=== PATIENT | male | born 1965 | race Caucasian/White ===

== ENCOUNTER 2016-07-19 21:22 | Emergency (ER) | payer OTHER ==
[~2016-07-19] VITALS: Ht 167.6 cm; Wt 79.5 kg
[~2016-07-19 21:22] MED LIST: ASPI81TA11 PO; ENAL10TA7 PO; FENO145T2 PO; GLUC1000 PO; GLYB1TAB51 PO; SIMV20 PO; TEST1INJ3 IM
[2016-07-19 21:25] VITALS: BP 133/83; PULSE 80; RESP 18; TEMP 98.6; O2SAT 96
[2016-07-19] MEDS ORDERED: LIPI80TA PO (22:45)
[2016-07-19] MEDS ORDERED: MULT1TAB84 PO (22:45)
[2016-07-19] MEDS ORDERED: HYDR-3533 PO (23:09)
[2016-07-19] MEDS ORDERED: ACETAMINOPHEN/HYDROcodone 325 MG/5 MG TAB PO ONE (23:15)
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
--- NOTE | 2016-07-19 23:57 | RADRPT ---
EXAM DATE/TIME: 07/19/2016 23:17 [facility] COMPARISON: No previous studies available for comparison. INDICATIONS : Right knee pain, no trauma. MEDICAL HISTORY : Hypertension. Diabetes mellitus type II. SURGICAL HISTORY : None. ENCOUNTER: Initial ACUITY: 1 day PAIN SCORE: 5/10 LOCATION: Right lateral knee. FINDINGS: There is no evidence of acute fracture. Bony mineralization is normal. Joint spaces are maintained. T here is no evidence of joint effusion. Accessory ossicle is present. CONCLUSION: 1. Negative examination of the knee. Jitendra Jung MD on July 19, 2016 at 23:52 Board Certified Radiologist. This report was verified electronically.
== END 2016-07-20 00:08 | disposition home or self-care (01) ==
LOC: NEPB 21:22
DX: S83.91XA Sprain of unspecified site of right knee, initial encounter (principal); X50.0XXA Overexertion from strenuous movement or load, initial encounter; Y92.003 Bedroom of unspecified non-institutional (private) residence as the place of occurrence of the external cause; E78.00 Pure hypercholesterolemia, unspecified; E11.9 Type 2 diabetes mellitus without complications; K21.9 Gastro-esophageal reflux disease without esophagitis; I10 Essential (primary) hypertension
CPT/HCPCS: 73560; 99283; L1830

== ENCOUNTER 2017-03-22 04:23 | Inpatient (IN) | payer OTHER ==
[~2017-03-22] VITALS: Ht 170.2 cm; Wt 75.7 kg
[~2017-03-22 04:23] MED LIST changes: -ASPI81TA11 PO; -ENAL10TA7 PO; -FENO145T2 PO; -GLUC1000 PO; -GLYB1TAB51 PO; +HYDR-3533 PO; +LIPI80TA PO; +MULT1TAB84 PO; -SIMV20 PO; -TEST1INJ3 IM
[2017-03-22 04:25] VITALS: BP 168/90; PULSE 99; RESP 16; TEMP 98.5; O2SAT 99
[2017-03-22] MEDS ORDERED: SODIUM CHLOR 0.9% 1000 ML INJ 1,000 ML IV ONE (04:45)
[2017-03-22] MEDS ORDERED: HYDROmorphone HCL PF 1 MG/ML VIAL IV PUSH ONE (04:45)
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
[2017-03-22 05:09] LABS: AUTOMATED NEUTROPHIL # 8.8 TH/MM3 (1.8-7.7); BASOPHIL % 0.1 % (0.0-2.0); EOSINOPHIL # 0.1 TH/MM3 (0-0.4); HEMATOCRIT 43.2 % (39.0-51.0); HEMO FLAGS DIFF FINAL; LYMPH % 8.1 % (9.0-44.0); LYMPHOCYTE # 0.8 TH/MM3 (1.0-4.8); MEAN CELL VOLUME 87.2 FL (80.0-100.0); MEAN CORPUSCULAR HEMOGLOBIN 29.3 PG (27.0-34.0); MEAN CORPUSCULAR HGB CONC 33.6 % (32.0-36.0); MONO % 1.6 % (0.0-8.0); NEUT % 89.2 % (16.0-70.0); PLATELET COUNT 182 TH/MM3 (150-450); RED BLOOD COUNT 4.95 MIL/MM3 (4.50-5.90); RED CELL DISTRIBUTION WIDTH 13.4 % (11.6-17.2); WHITE BLOOD COUNT 9.9 TH/MM3 (4.0-11.0)
[2017-03-22 05:26] LABS: ALT (GPT) 212 U/L (12-78); ANION GAP 7 MEQ/L (5-15); AST (GOT) 267 U/L (15-37); BICARBONATE 30.7 MEQ/L (21.0-32.0); BLOOD UREA NITROGEN 12 MG/DL (7-18); CHLORIDE 102 MEQ/L (98-107); POTASSIUM 3.6 MEQ/L (3.5-5.1); SODIUM (NA) 140 MEQ/L (136-145)
[2017-03-22 05:29] LABS: ALKALINE PHOSPHATASE 200 U/L (45-117); TOTAL BILIRUBIN ADULT 1.1 MG/DL (0.2-1.0)
[2017-03-22] MEDS ORDERED: IOHEXOL 350 MG/ML 10 ML VIAL (for RAD DIAG) IVCONTRAST ONE (05:44)
--- NOTE | 2017-03-22 06:01 | RADRPT ---
EXAM DATE/TIME: 03/22/2017 05:42 [facility] COMPARISON: No previous studies available for comparison. INDICATIONS : Right upper quadrant pain. IV CONTRAST: 95 cc Omnipaque 350 (iohexol) IV ORAL CONTRAST: No oral contrast ingested. RADIATION DOSE: 7.69 CTDIvol (mGy) MEDICAL HISTORY : Cardiovascular disease. Gastroesophageal reflux disease. Hypertension.Diabetes. SURGICAL HISTORY : Gastric bypass. ENCOUNTER: Initial ACUITY: 1 day PAIN SCALE: 6/10 LOCATION: Right upper quadrant TECHNIQUE: Volumetric scanning of the abdomen and pelvis was performed. Using automated exposure control and ad justment of the mA and/or kV according to patient size, radiation dose was kept as low as reasonably achievable to obtain optimal diagnostic quality images. DICOM format image data is available electro nically for review and comparison. FINDINGS: LOWER LUNGS: The visualized lower lungs are clear. LIVER: Homogeneous density without lesion. Mild intrahepatic with significant extrahepatic biliary duct dila tation. CBD measures 1.1 cm in diameter. Gallbladder distention with probable pericholecystic fluid. Abnormal density in the distal duct is concerning for a stone measuring upwards of 8 mm in diameter. SPLEEN: Normal size without lesion. PANCREAS: Within normal limits. KIDNEYS: Normal in size and shape. There is no mass, stone or hydronephrosis. ADRENAL GLANDS: Within normal limits. VASCULAR: There is no aortic aneurysm. BOWEL/MESENTERY: The stomach, small bowel, and colon demonstrate no acute abnormality. There is no free intraperitone al air or fluid. The appendix is identified and is radiographically normal. ABDOMINAL WALL: Within normal limits. RETROPERITONEUM: There is no lymphadenopathy. BLADDER: No wall thickening or mass. REPRODUCTIVE: Within normal limits. INGUINAL: There is no lymphadenopathy or hernia. MUSCULOSKELETAL: Within normal limits for patient age. CONCLUSION: 1. I believe patient's symptoms are due to a biliary ductal stone measuring 8 mm in diameter with res ulting intrahepatic and extrahepatic biliary ductal dilatation, gallbladder distention and mild peric holecystic fluid. 2. Otherwise negative. The vermiform appendix is identified and is radiographically normal. The appen diceal tip is juxtaposed between the right hepatic lobe and ascending colon. Luis Olvera MD on March 22, 2017 at 5:56 Board Certified Radiologist. This report was verified electronically.
[2017-03-22] MEDS ORDERED: PIPERACIL-TAZO 3.375 GM PREMIX 50 ML IV ONE (06:15)
[2017-03-22] MEDS ORDERED: TEMAZEPAM 15 MG CAP PO PRN (06:45)
[2017-03-22] MEDS ORDERED: ONDANSETRON HCL 4 MG/2 ML VIAL IVP PRN (06:45)
[2017-03-22] MEDS ORDERED: SODIUM CHLORIDE 0.9% FLUSH 10 ML FLUSH IV FLUSH PRN (06:45)
[2017-03-22] MEDS ORDERED: NALOXONE HCL 0.4 MG/ML AMP IV PUSH PRN (06:45)
[2017-03-22] MEDS ORDERED: MAGNESIUM HYDROXIDE SUSP 30 ML CUP PO PRN (06:45)
[2017-03-22] MEDS ORDERED: ACETAMINOPHEN 325 MG TAB PO PRN (06:45)
--- NOTE | 2017-03-22 06:48 | RADRPT ---
EXAM DATE/TIME: 03/22/2017 06:35 [facility] COMPARISON: No previous studies available for comparison. INDICATIONS : Chest pain and cough MEDICAL HISTORY : Cardiovascular disease. Gastroesophageal reflux disease. Hypertension.Diabetes. SURGICAL HISTORY : Gastric bypass ENCOUNTER: Initial ACUITY: 1 day PAIN SCORE: 6/10 LOCATION: Bilateral chest FINDINGS: A single view of the chest demonstrates the lungs to be symmetrically, but under aerated without evid ence of mass, infiltrate or effusion. The cardiomediastinal contours are unremarkable. Osseous stru ctures are intact. CONCLUSION: Hypoinflation with no acute cardiac pulmonary process. Luis Olvera MD on March 22, 2017 at 6:46 Board Certified Radiologist. This report was verified electronically.
[2017-03-22] MEDS: 1/2 NS + KCL 20 MEQ INJ 1,000 ML IV SCH ×3 (07:57→19:00)
[2017-03-22 08:32] VITALS: BP 99/62; PULSE 98; RESP 18; O2SAT 99
[2017-03-22] MEDS: SODIUM CHLORIDE 0.9% FLUSH 10 ML FLUSH IV FLUSH SCH (09:00)
[2017-03-22 09:52] VITALS: BP 95/66; PULSE 107; RESP 18; TEMP 99.4; O2SAT 95
--- NOTE | 2017-03-22 10:37 | HHI.HP ---
HPI Service CP Hospitalists Primary Care Physician Non-Staff Admission Diagnosis biliary pancreatitis Chief Complaint: Abdominal pain Travel History International Travel<30 Days: No Contact w/Intl Traveler <30 Da: No Traveled to Known Affected Are: No History of Present Illness This is a 51 year old male patient with a past medical history which includes high cholesterol, R carotid stenosis, DM, GERD and HTN. Patient has gastic bypass 2014 and in no longer on medication for DM, GERD or HTN. Patient reports he has had three episodes of RUQ abdominal pain described as feeling as though his abdominal muscles are tightened and wount relax. The initial episode was about two months ago then second episode was about one month ago both of these episodes resolved spontaneously. Last night night pain had a third episode of RUQ abdominal pain that did not resolve therefore he proceeded to the ER. Pain resolved after IV dilaudid. Patient reports associated dry heaves and nausea. Patient is unsure what causes these episodes, they do not seem to be related to food. Patient denies fevers, SOB or chest pain. CT abd/pelvis reviewed and reveals: 8mm biliary duct obstructing stone. Review of Systems Constitutional: COMPLAINS OF: Chills, DENIES: Fatigue, Fever Respiratory: DENIES: Cough, Sputum production, Shortness of breath Cardiovascular: DENIES: Chest pain, Palpitations, Dyspnea on Exertion, Lower Extremity Edema Gastrointestinal: COMPLAINS OF: Abdominal pain, Nausea, DENIES: Constipation, Diarrhea Neurologic: COMPLAINS OF: Speech Problems, DENIES: Abnormal gait, Localized weakness Psychiatric: DENIES: Anxiety, Confusion, Depression Past Family Social History Past Medical History high cholesterol, R carotid stenosis, DM, GERD and HTN. Patient has gastic bypass 2014 and in no longer on medication for DM, GERD or HTN Past Surgical History Gastric bypass 02/2015 L shoulder orthoscopic surgery Vasectomy Reported Medications Lipitor (Atorvastatin Calcium) 80 Mg Tab 80 Mg PO DAILY Allergies: Coded Allergies: No Known Allergies (Verified , 03/22/17) Active Ordered Medications Current Medications Medications (Trade) Dose Ordered Sig/Brynn Route Start Time Stop Time Status Last Admin (NS Flush) 2 ml UNSCH PRN IV FLUSH 03/22/17 06:45 (NS Flush) 2 ml BID IV FLUSH 03/22/17 09:00 (Tylenol) 650 mg Q4H PRN PO 03/22/17 06:45 (Zofran Inj) 4 mg Q6H PRN IVP 03/22/17 06:45 (Restoril) 15 mg HS PRN PO 03/22/17 06:45 (Narcan Inj) 0.4 mg UNSCH PRN IV PUSH 03/22/17 06:45 (Milk Of Magnbeka Liq) 30 ml Q12H PRN PO 03/22/17 06:45 Potassium Chloride/Sodium Chloride 1,000 ml @ 100 mls/hr Q10H IV 03/22/17 06:45 03/22/17 07:57 (Mathis 5-325 Mg) 1 tab Q6H PRN PO 03/22/17 06:45 (Dilaudid Pf Inj) 1 mg Q6H PRN IV PUSH 03/22/17 06:45 Family History Father at 83 year old had CAD and Parkinson's dx Mother alive 88 with macular degeneration Social History 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 CARDIOVASCULAR: Regular rate and rhythm without murmurs, gallops, or rubs. RESPIRATORY: Clear to auscultation. Breath sounds equal bilaterally. No wheezes , rales, or rhonchi. GASTROINTESTINAL: Abdomen soft, RUQ tender with palpation, nondistended. MUSCULOSKELETAL: Extremities without clubbing, cyanosis, or edema. No joint tenderness, effusion, or edema noted. No calf tenderness. Negative Homans sign bilaterally. NEUROLOGICAL: Awake and alert. No focal deficits appreciated. Motor and sensory grossly within normal limits. Five out of 5 muscle strength in all muscle groups. Normal speech. Laboratory Laboratory Tests Test 03/22/17 04:45 White Blood Count 9.9 Red Blood Count 4.95 Hemoglobin 14.5 Hematocrit 43.2 Mean Corpuscular Volume 87.2 Mean Corpuscular Hemoglobin 29.3 Mean Corpuscular Hemoglobin Concent 33.6 Red Cell Distribution Width 13.4 Platelet Count 182 Mean Platelet Volume 7.7 Neutrophils (%) (Auto) 89.2 Lymphocytes (%) (Auto) 8.1 Monocytes (%) (Auto) 1.6 Eosinophils (%) (Auto) 1.0 Basophils (%) (Auto) 0.1 Neutrophils # (Auto) 8.8 Lymphocytes # (Auto) 0.8 Monocytes # (Auto) 0.2 Eosinophils # (Auto) 0.1 Basophils # (Auto) 0.0 CBC Comment DIFF FINAL Differential Comment Blood Urea Nitrogen 12 Creatinine 0.97 Random Glucose 152 Total Protein 7.2 Albumin 3.7 Calcium Level 9.2 Alkaline Phosphatase 200 Aspartate Amino Transf (AST/SGOT) 267 Alanine Aminotransferase (ALT/SGPT) 212 Total Bilirubin 1.1 Sodium Level 140 Potassium Level 3.6 Chloride Level 102 Carbon Dioxide Level 30.7 Anion Gap 7 Lipase 2790 Result Diagram: 03/22/17 0445 03/22/17 0445 Imaging Last Impressions Chest X-Ray 03/22/17 0631 Signed Impressions: Service Date/Time: Wednesday, March 22, 2017 06:35 - CONCLUSION: Hypoinflation with no acute cardiac pulmonary process. Luis Olvera MD Abdomen/Pelvis CT 03/22/17 0000 Signed Impressions: Service Date/Time: Wednesday, March 22, 2017 05:42 - CONCLUSION: 1. I believe patient's symptoms are due to a biliary ductal stone measuring 8 mm in diameter with resulting intrahepatic and extrahepatic biliary ductal dilatation, gallbladder distention and mild pericholecystic fluid. 2. Otherwise negative. The vermiform appendix is identified and is radiographically normal. The appendiceal tip is juxtaposed between the right hepatic lobe and ascending colon. Luis Olvera MD Caprini VTE Risk Assessment Caprini VTE Risk Assessment: No/Low Risk (score <= 1) Caprini Risk Assessment Model Point Value = 1 Point Value = 2 Point Value = 3 Point Value = 5 Age 41-60 Minor surgery BMI > 25 kg/m2 Swollen legs Varicose veins or History of unexplained or recurrent spontaneous Oral contraceptives or hormone replacement Sepsis (< 1 month) Serious lung disease, including pneumonia (< 1 month) Abnormal pulmonary function Acute myocardial infarction Congestive heart failure (< 1 month) History of inflammatory bowel disease Medical patient at bed rest Age 61-74 Arthroscopic surgery Major open surgery (> 45 min) Laparoscopic surgery (> 45 min) Malignancy Confined to bed (> 72 hours) Immobilizing plaster cast Central venous access Age >= 75 History of VTE Family history of VTE Factor V Leiden Prothrombin [id number] Lupus anticoagulant Anticardiolipin antibodies Elevated serum homocysteine Heparin-induced thrombocytopenia Other congenital or acquired thrombophilia Stroke (< 1 month) Elective arthroplasty Hip, pelvis, or leg fracture Acute spinal cord injury (< 1 month) Prophylaxis Regimen Total Risk Factor Score Risk Level Prophylaxis Regimen 0-1 Low Early ambulation 2 Moderate Order ONE of the following: *Sequential Compression Device (SCD) *Heparin 5000 units SQ BID 3-4 Higher Order ONE of the following medications: *Heparin 5000 units SQ TID *Enoxaparin/Lovenox 40 mg SQ daily (WT < 150 kg, CrCl > 30 mL/min) *Enoxaparin/Lovenox 30 mg SQ daily (WT < 150 kg, CrCl > 10-29 mL/min) *Enoxaparin/Lovenox 30 mg SQ BID (WT < 150 kg, CrCl > 30 mL/min) AND/OR *Sequential Compression Device (SCD) 5 or more Highest Order ONE of the following medications: *Heparin 5000 units SQ TID (Preferred with Epidurals) *Enoxaparin/Lovenox 40 mg SQ daily (WT < 150 kg, CrCl > 30 mL/min) *Enoxaparin/Lovenox 30 mg SQ daily (WT < 150 kg, CrCl > 10-29 mL/min) *Enoxaparin/Lovenox 30 mg SQ BID (WT < 150 kg, CrCl > 30 mL/min) AND *Sequential Compression Device (SCD) Assessment and Plan Problem List: (1) Pancreatitis due to biliary obstruction ICD Codes: K85.90 - Acute pancreatitis without necrosis or infection, unspecified; K83.1 - Obstruction of bile duct Status: Acute Plan: NPO hydrate with IV fluids recheck CBC. BMP and lipase in AM CT scan reviewed and reveals Biliary ductal stone measuring 8 mm in diameter with resulting intrahepatic and extrahepatic biliary ductal dilation, gallbladder distention and mild pericholecystic fluid. Lipase 2790 Dilaudid IV as needed for pain Consult GI discussed with due to patient's previous Muna-en-Y surgery will need interventional radiology Discussed case and a CT scan with General surgery Dr. Quinteros. Dr. Quinteros would like general surgical consult after interventional radiology procedure complete SCDs for DVT prophylaxis (2) Choledocholithiasis ICD Codes: K80.50 - Calculus of bile duct without cholangitis or cholecystitis without obstruction Plan: see above (3) Transaminitis ICD Codes: R74.0 - Nonspecific elevation of levels of transaminase and lactic acid dehydrogenase [LDH] Plan: see above (4) Hypercholesteremia ICD Codes: E78.00 - Pure hypercholesterolemia, unspecified Plan: hold statin at this time Assessment and Plan Patient examined. Assessment and plan formulated with Bindu Thomas PA-C. I agree with the above. Pt admitted with abdominal pain. CT abd showed choledocholithiasis. Pt with h/o muna-en-y gastric bypass, so NOT a candidate for ERCP. Pt will need to undergo percutaneous cholangiogram with IR. Physician Certification 2 Midnight Certification Type: Admission for Inpatient Services Order for Inpatient Services The services are ordered in accordance with Medicare regulations or non- Medicare payer requirements, as applicable. In the case of services not specified as inpatient-only, they are appropriately provided as inpatient services in accordance with the 2-midnight benchmark. Estimated LOS (days): 3 days is the estimated time the patient will need to remain in the hospital, assuming treatment plan goals are met and no additional complications. Post-Hospital Plan: Home Problem Qualifiers (1) Pancreatitis due to biliary obstruction: Qualified Codes: K85.10 - Biliary acute pancreatitis without necrosis or infection Bindu Thomas Mar 22, 2017 10:37 Joseph Wan DO Mar 23, 2017 22:33
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
[2017-03-22] MEDS ORDERED: ASPI81CH CHEW (11:03)
[2017-03-22 11:58] VITALS: BP 86/74; PULSE 100; RESP 18; TEMP 99.4; O2SAT 95
--- NOTE | 2017-03-22 12:43 | EKG ---
Date Performed: 03/22/2017 Time Performed: 08:45:01 PTAGE: 51 years EKG: SINUS TACHYCARDIA ABNORMAL RHYTHM ECG PREVIOUS TRACING : 10/26/2014 10.12 No significant change from previous tracing noted. DOCTOR: Garrick Abarca Interpretating Date/Time 03/22/2017 12:41:31
[2017-03-22 14:50] LABS: INTERNATIONAL NORMALIZED RATIO 1.1 RATIO; PROTHROMBIN TIME - PATIENT 11.7 SEC (9.8-11.6)
[2017-03-22 16:00] VITALS: BP 85/58; PULSE 81; RESP 18; TEMP 98.8; O2SAT 97
[2017-03-22 17:54] LABS: BLOOD, URINE NEG (NEG); GLUCOSE,URINE NEG (NEG); KETONE, URINE NEG (NEG); NITRITE,URINE NEG (NEG); URINE COLOR YELLOW (YELLW/STRAW)
[2017-03-22 18:01] LABS: COMMENT (UR) CULT NOT INDICATED; CULTURE IF INDICATED CULT NOT INDICATED
[2017-03-22 20:27] VITALS: BP 100/70; PULSE 69; RESP 18; TEMP 98.4; O2SAT 98
[2017-03-23 00:26] VITALS: BP 100/59; PULSE 72; RESP 18; TEMP 97.2; O2SAT 96
[2017-03-23] MEDS: 1/2 NS + KCL 20 MEQ INJ 1,000 ML IV SCH ×3 (03:00→22:10)
[2017-03-23 04:49] VITALS: BP 118/74; PULSE 62; RESP 18; TEMP 97.7; O2SAT 97
[2017-03-23 08:00] VITALS: BP 138/67; PULSE 61; RESP 18; TEMP 96.6; O2SAT 98
--- NOTE | 2017-03-23 08:14 | HHI.PR ---
Subjective Remarks Patient awake and alert, denies pain, nausea or vomiting C/O of feeling hungry plan for percutaneous cholangiogram today with IR Objective Vitals Vital Signs Date Time Temp Pulse Resp B/P (MAP) Pulse Ox O2 Delivery O2 Flow Rate FiO2 03/23/17 04:49 97.7 62 18 118/74 (89) 97 03/23/17 00:26 97.2 72 18 100/59 (73) 96 03/22/17 20:27 98.4 69 18 100/70 (80) 98 03/22/17 16:00 98.8 81 18 85/58 (67) 97 03/22/17 11:58 99.4 100 18 86/74 (78) 95 03/22/17 09:52 99.4 107 18 95/66 (76) 95 03/22/17 09:05 03/22/17 08:32 98 18 99/62 (74) 99 Room Air Result Diagram: 03/22/17 0445 03/22/17 0445 Other Results Laboratory Tests Test 03/22/17 04:45 03/22/17 14:00 03/22/17 15:29 03/23/17 07:03 White Blood Count 9.9 TH/MM3 Red Blood Count 4.95 MIL/MM3 Hemoglobin 14.5 GM/DL Hematocrit 43.2 % Mean Corpuscular Volume 87.2 FL Mean Corpuscular Hemoglobin 29.3 PG Mean Corpuscular Hemoglobin Concent 33.6 % Red Cell Distribution Width 13.4 % Platelet Count 182 TH/MM3 Mean Platelet Volume 7.7 FL Neutrophils (%) (Auto) 89.2 % Lymphocytes (%) (Auto) 8.1 % Monocytes (%) (Auto) 1.6 % Eosinophils (%) (Auto) 1.0 % Basophils (%) (Auto) 0.1 % Neutrophils # (Auto) 8.8 TH/MM3 Lymphocytes # (Auto) 0.8 TH/MM3 Monocytes # (Auto) 0.2 TH/MM3 Eosinophils # (Auto) 0.1 TH/MM3 Basophils # (Auto) 0.0 TH/MM3 CBC Comment DIFF FINAL Differential Comment Blood Urea Nitrogen 12 MG/DL Creatinine 0.97 MG/DL Random Glucose 152 MG/DL Total Protein 7.2 GM/DL Albumin 3.7 GM/DL Calcium Level 9.2 MG/DL Alkaline Phosphatase 200 U/L Aspartate Amino Transf (AST/SGOT) 267 U/L Alanine Aminotransferase (ALT/SGPT) 212 U/L Total Bilirubin 1.1 MG/DL Sodium Level 140 MEQ/L Potassium Level 3.6 MEQ/L Chloride Level 102 MEQ/L Carbon Dioxide Level 30.7 MEQ/L Anion Gap 7 MEQ/L Lipase 2790 U/L Prothrombin Time 11.7 SEC Prothromb Time International Ratio 1.1 RATIO Urine Color YELLOW Urine Turbidity CLEAR Urine pH 6.0 Urine Specific [place] 1.010 Urine Protein NEG mg/dL Urine Glucose (UA) NEG mg/dL Urine Ketones NEG mg/dL Urine Occult Blood NEG Urine Nitrite NEG Urine Bilirubin NEG Urine Urobilinogen 2.0 MG/DL Urine Leukocyte Esterase NEG Microscopic Urinalysis Comment CULT NOT INDICATED Imaging Last Impressions Chest X-Ray 03/22/17 0631 Signed Impressions: Service Date/Time: Wednesday, March 22, 2017 06:35 - CONCLUSION: Hypoinflation with no acute cardiac pulmonary process. Luis Olvera MD Abdomen/Pelvis CT 03/22/17 0000 Signed Impressions: Service Date/Time: Wednesday, March 22, 2017 05:42 - CONCLUSION: 1. I believe patient's symptoms are due to a biliary ductal stone measuring 8 mm in diameter with resulting intrahepatic and extrahepatic biliary ductal dilatation, gallbladder distention and mild pericholecystic fluid. 2. Otherwise negative. The vermiform appendix is identified and is radiographically normal. The appendiceal tip is juxtaposed between the right hepatic lobe and ascending colon. Luis Olvera MD Objective Remarks GENERAL: This is a well-nourished, well-developed patient, in no apparent distress. CARDIOVASCULAR: Regular rate and rhythm without murmurs, gallops, or rubs. RESPIRATORY: Clear to auscultation. Breath sounds equal bilaterally. No wheezes , rales, or rhonchi. GASTROINTESTINAL: Abdomen soft, RUQ tender with palpation, nondistended. MUSCULOSKELETAL: Extremities without clubbing, cyanosis, or edema. No joint tenderness, effusion, or edema noted. No calf tenderness. Negative Homans sign bilaterally. NEUROLOGICAL: Awake and alert. No focal deficits appreciated. Motor and sensory grossly within normal limits. Five out of 5 muscle strength in all muscle groups. Normal speech. A/P Problem List: (1) Pancreatitis due to biliary obstruction ICD Codes: K85.90 - Acute pancreatitis without necrosis or infection, unspecified; K83.1 - Obstruction of bile duct Status: Acute Plan: NPO hydrate with IV fluids recheck CBC. BMP and lipase in AM CT scan reviewed and reveals Biliary ductal stone measuring 8 mm in diameter with resulting intrahepatic and extrahepatic biliary ductal dilation, gallbladder distention and mild pericholecystic fluid. Lipase 2790 - repeat labs pending Dilaudid IV as needed for pain Consult GI discussed with due to patient's previous Nesha-en-Y surgery will need interventional radiology Discussed case and a CT scan with General surgery Dr. Quinteros (03/22). Dr. Quinteros would like general surgical consult after interventional radiology procedure complete Plan for percutaneous cholangiogram today (03/23) with IR SCDs for DVT prophylaxis (2) Choledocholithiasis ICD Codes: K80.50 - Calculus of bile duct without cholangitis or cholecystitis without obstruction Plan: see above (3) Transaminitis ICD Codes: R74.0 - Nonspecific elevation of levels of transaminase and lactic acid dehydrogenase [LDH] Plan: see above (4) Hypercholesteremia ICD Codes: E78.00 - Pure hypercholesterolemia, unspecified Plan: hold statin at this time Assessment and Plan Patient examined. Assessment and plan formulated with Bindu Thomas PA-C. I agree with the above. choledocholithiasis. IR placed cholecystostomy tube. decompression then THPC in 48hrs. will consult gen surg after. Problem Qualifiers (1) Pancreatitis due to biliary obstruction: Qualified Codes: K85.10 - Biliary acute pancreatitis without necrosis or infection Bindu Thomas Mar 23, 2017 08:14 Pranav Henning MD Mar 23, 2017 23:05
[2017-03-23 08:32] LABS: ALKALINE PHOSPHATASE 169 U/L (45-117); ALT (GPT) 178 U/L (12-78); ANION GAP 6 MEQ/L (5-15); AST (GOT) 95 U/L (15-37); BICARBONATE 27.2 MEQ/L (21.0-32.0); BLOOD UREA NITROGEN 8 MG/DL (7-18); CHLORIDE 102 MEQ/L (98-107); GLOMERULAR FILTRATION RATE 115 ML/MIN (>89); POTASSIUM 4.1 MEQ/L (3.5-5.1); SODIUM (NA) 135 MEQ/L (136-145); TOTAL BILIRUBIN ADULT 1.2 MG/DL (0.2-1.0)
[2017-03-23] MEDS: SODIUM CHLORIDE 0.9% FLUSH 10 ML FLUSH IV FLUSH SCH ×2 (09:00→22:06)
[2017-03-23] MEDS ORDERED: PROPOFOL 200 MG/20 ML AMP IV ONE (09:38)
[2017-03-23] MEDS ORDERED: ONDANSETRON HCL 4 MG/2 ML VIAL IV PUSH ONE (09:38)
[2017-03-23 12:00] VITALS: BP 155/69; PULSE 64; RESP 18; TEMP 98.7; O2SAT 96
--- NOTE | 2017-03-23 12:11 | HHI.GIFU ---
Subjective Remarks Pain improved. Only has abdominal tenderness on exam, but otherwise abdominal pain has improved. No n/v. Hungry- wants to eat. Anxious to have procedure done so he can get something to eat. (Priscilla Noel) Objective Vitals I&O Vital Signs Date Time Temp Pulse Resp B/P (MAP) Pulse Ox O2 Delivery O2 Flow Rate FiO2 03/23/17 08:00 96.6 61 18 138/67 (90) 98 03/23/17 04:49 97.7 62 18 118/74 (89) 97 03/23/17 00:26 97.2 72 18 100/59 (73) 96 03/22/17 20:27 98.4 69 18 100/70 (80) 98 03/22/17 16:00 98.8 81 18 85/58 (67) 97 03/22/17 11:58 99.4 100 18 86/74 (78) 95 I/O 03/22/17 03/22/17 03/22/17 03/23/17 03/23/17 03/23/17 07:00 15:00 23:00 07:00 15:00 23:00 Intake Total 1000 ml 660 ml 480 ml 0 ml Output Total 800 ml Balance 1000 ml 660 ml -320 ml 0 ml Intake Oral 660 ml 480 ml 0 ml IV Total 1000 ml Output Urine Total 800 ml # Voids 2 3 # Bowel Movements 0 0 0 Laboratory Laboratory Tests Test 03/22/17 14:00 03/22/17 15:29 03/23/17 07:03 Prothrombin Time 11.7 Prothromb Time International Ratio 1.1 Urine Color YELLOW Urine Turbidity CLEAR Urine pH 6.0 Urine Specific [place] 1.010 Urine Protein NEG Urine Glucose (UA) NEG Urine Ketones NEG Urine Occult Blood NEG Urine Nitrite NEG Urine Bilirubin NEG Urine Urobilinogen 2.0 Urine Leukocyte Esterase NEG Microscopic Urinalysis Comment CULT NOT INDICATED Blood Urea Nitrogen 8 Creatinine 0.72 Random Glucose 102 Total Protein 5.7 Albumin 2.8 Calcium Level 8.6 Alkaline Phosphatase 169 Aspartate Amino Transf (AST/SGOT) 95 Alanine Aminotransferase (ALT/SGPT) 178 Total Bilirubin 1.2 Sodium Level 135 Potassium Level 4.1 Chloride Level 102 Carbon Dioxide Level 27.2 Anion Gap 6 Estimat Glomerular Filtration Rate 115 Lipase 267 Imaging Last Impressions Chest X-Ray 03/22/17 0631 Signed Impressions: Service Date/Time: Wednesday, March 22, 2017 06:35 - CONCLUSION: Hypoinflation with no acute cardiac pulmonary process. Luis Olvera MD Abdomen/Pelvis CT 03/22/17 0000 Signed Impressions: Service Date/Time: Wednesday, March 22, 2017 05:42 - CONCLUSION: 1. I believe patient's symptoms are due to a biliary ductal stone measuring 8 mm in diameter with resulting intrahepatic and extrahepatic biliary ductal dilatation, gallbladder distention and mild pericholecystic fluid. 2. Otherwise negative. The vermiform appendix is identified and is radiographically normal. The appendiceal tip is juxtaposed between the right hepatic lobe and ascending colon. Luis Olvera MD Physical Exam HEENT: Normocephalic; atraumatic; no jaundice. CHEST: CTA CARDIAC: RRR ABDOMEN: Soft, nondistended, mild tenderness on exam; no hepatosplenomegaly; bowel sounds are present in all four quadrants. EXTREMITIES: No clubbing, cyanosis, or edema. SKIN: Normal; no rash; no jaundice. 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 (Priscilla Noel) Assessment and Plan Plan ASSESSMENT: - GS pancreatitis. Abdomen/Pelvis CT 03/22/17--> I believe the patient's symptoms are due to a biliary ductal stone measuring 8 mm in diameter with resulting intrahepatic and extrahepatic biliary ductal dilatation, gallbladder distention, and mild pericholecystic fluid. Otherwise negative. The vermiform appendix is identified and is radiographically normal. The appendiceal tip is juxtaposed between the right hepatic lobe and ascending colon. Pt with hx of Nesha-en-Y gastric bypass. LFTs 1.2, 95, 178, Alk Phosph 169. Lipase 2790---> 267. Scheduled for PTHC today (given hx of gastric bypass). NPO. Clinically feeling better. - Choledocholithiasis. 8mm CBD sone. Has hx of gastric bypass and therefore IR consulted for PTHC. - Elevated lfts secondary to above. PLAN: - IR consulted for PTHC - NPO - IVF - Monitor labs - Supportive care - Consider GS evaluation after above - Further recommendations to follow based on results of above - Patient seen and examined by Dr. Meek and myself and this note is written on his behalf. (Priscilla Noel) Physician Comments Patient seen and examined Agree with above Monitor labs Continue with current supportive care IR unable to access the biliary system through the gallbladder. Gallbladder drain in place at this point and there will be a second attempt at biliary access in 48 hours (Farhan Meek MD) Priscilla Noel Mar 23, 2017 11:43 Farhan Meek MD Mar 23, 2017 22:14
[2017-03-23] MEDS ORDERED: LEVOFLOXACIN 500 MG PREMIX INJ 100 ML IV ONE (12:48)
[2017-03-23] MEDS ORDERED: IOHEXOL 350 MG/ML 50 ML BTL (for RAD DIAG) OTHER ONE (14:09)
[2017-03-23] MEDS ORDERED: DO NOT ADM ANY ANTICOAGULANT DRUGS PRN (14:17)
[2017-03-23] MEDS ORDERED: *morphine SULFATE 8 MG/ML PERIprocedure ONLY ONE (14:31)
--- NOTE | 2017-03-23 15:03 | PD.RAD ---
Post Procedure Progress Note Pre Procedure Diagnosis: (1) Biliary obstruction (2) Pancreatitis due to biliary obstruction (3) Choledocholithiasis Post Procedure Diagnosis: (1) Pancreatitis due to biliary obstruction (2) Biliary obstruction (3) Choledocholithiasis Procedure Date: Mar 23, 2017 Supervising Radiologist: Luis Olvera Proceduralist/Assist: Leti Toro, RT(R), Sophia Morfin RT(R) Anesthesia: General Plan of Activity Patient to Unit: PACU Patient Condition: Good See PACS Report for procedural detail/treatment Drainage Procedure Procedure 1 Imaging Guidance: Fluoroscopy, Ultrasound Procedure Type: Cholecystostomy Procedure: Placement Malay: 6 Drainage: Suction (Accordian) Fluid Description: Bilious, Other (black) Findings: Unable to access intrahepatic biliary tree. Stuck GB (transhepatic) with micropunture needle. 3-Fr dilator placed into GB. Unable to opacify intrahepatic ducts with GB access. Will let drain for next 48 hours then will bring back for PTHD Luis Olvera MD Mar 23, 2017 15:03
[2017-03-23 16:00] VITALS: BP 125/68; PULSE 57; RESP 17; TEMP 97.4; O2SAT 99
[2017-03-23] MEDS: ACETAMINOPHEN/HYDROcodone 325 MG/5 MG TAB PO PRN ×2 (16:19→22:07)
--- NOTE | 2017-03-23 16:33 | RADRPT ---
EXAM DATE/TIME: 03/23/2017 12:41 [facility] COMPARISON: No previous studies available for comparison. INDICATIONS : Patient with biliary obstruction in need of cholecystostomy. MEDICAL HISTORY : HLD, HTN, Right carotid stenosis, Diabetes, GERD SURGICAL HISTORY : Gastric bypass 2014 ENCOUNTER: Initial ACUITY: 1 month PAIN SCORE: 0/10 FLUORO TIME: 26.3 minutes IMAGE SERIES: 2 CONTRAST: 100 cc Omnipaque (iohexol) 350 DEVICE(S): 1.) 6 Mongolian X20CM Locking Skater catheter Anesthesia and pain control was provided by the Anesthesia department. PROCEDURE : 1. Ultrasound guided puncture of the gallbladder. 2. Percutaneous cholangiogram. 3. Percutaneous cholecystostomy tube placement. 4. Conscious sedation with continuous EKG and oximetry monitoring. The risks, benefits and alternatives to the procedure were explained and verbal and written consent w as obtained. The site was prepped in sterile fashion. Full sterile technique was used, including ca p, mask, sterile gloves and gown and a large sterile sheet. Hand hygiene and 2% chlorhexidine and/or betadine/alcohol prep was utilized per protocol for cutaneous antisepsis. Sterile gel and sterile p robe cover were utilized for ultrasound guidance. The skin and subcutaneous tissues were infiltrated with local anesthetic solution. Multiple attempts to access the intrahepatic biliary system. Using ultrasound guidance[facility] the transhepatic approach with a micropuncture needle. The 018 wire was advanced thro ugh the needle over which a 3 Mongolian dilator was placed. Contrast was injected through the dilator wh ich opacified the distended gallbladder but I could not reflux into the biliary tree suggesting signi ficant obstruction. As such, the gallbladder access was upsized to accommodate a 6 Mongolian drain. Imme diately, 165 cc of black, thick bile was aspirated from the gallbladder. Conscious sedation was performed with the prescribed dosages and duration as above in the presence of an independent trained radiology nurse to assist in the monitoring of the patient. EKG and oximetry remained stable throughout the procedure. The patient tolerated the procedure well and there were n o complications. The patient was sent to post anesthesia recovery in stable condition. CONCLUSION: 1. Uncomplicated percutaneous cholecystostomy as above. 2. Plan to let the patient drain for the next 48 hours. We'll bring the patient back down and perform a complete cholangiogram through the gallbladder access. We ccan use the cholangiogram to performed a PTHD at that time. Luis Olvera MD on March 23, 2017 at 16:15 Board Certified Radiologist. This report was verified electronically.
[2017-03-23 20:21] VITALS: BP 136/87; PULSE 87; RESP 18; TEMP 98.9; O2SAT 98
[2017-03-24] VITALS (7 sets, daily range): BP systolic 125–143; BP diastolic 72–85; PULSE 59–89; RESP 16–18; TEMP 96.7–99.4; O2SAT 97–99
[2017-03-24] MEDS: ACETAMINOPHEN/HYDROcodone 325 MG/5 MG TAB PO PRN (00:59)
[2017-03-24 08:24] LABS: AUTOMATED NEUTROPHIL # 4.8 TH/MM3 (1.8-7.7); BASOPHIL % 0.2 % (0.0-2.0); EOSINOPHIL # 0.1 TH/MM3 (0-0.4); EOSINOPHIL % 1.4 % (0.0-4.0); HEMO FLAGS DIFF FINAL; LYMPH % 23.7 % (9.0-44.0); LYMPHOCYTE # 1.7 TH/MM3 (1.0-4.8); MEAN CELL VOLUME 86.9 FL (80.0-100.0); MEAN CORPUSCULAR HEMOGLOBIN 29.3 PG (27.0-34.0); MEAN CORPUSCULAR HGB CONC 33.7 % (32.0-36.0); MONO % 6.9 % (0.0-8.0); NEUT % 67.8 % (16.0-70.0); PLATELET COUNT 155 TH/MM3 (150-450); RED BLOOD COUNT 4.26 MIL/MM3 (4.50-5.90); RED CELL DISTRIBUTION WIDTH 12.9 % (11.6-17.2); WHITE BLOOD COUNT 7.1 TH/MM3 (4.0-11.0)
[2017-03-24] MEDS ORDERED: diphenhydrAMINE HCL 25 MG CAP PO PRN (08:30)
--- NOTE | 2017-03-24 08:32 | HHI.PR ---
Subjective Remarks Patient resting in bed reports itching after [place] RUQ abdominal pain described as a constant aching with sharp stabbing sensation caused by movement Objective Vitals Vital Signs Date Time Temp Pulse Resp B/P (MAP) Pulse Ox O2 Delivery O2 Flow Rate FiO2 03/24/17 04:34 98.2 64 18 129/80 (96) 98 03/24/17 02:10 Room Air 03/24/17 01:59 16 03/24/17 00:53 99.4 89 18 125/72 (89) 97 03/23/17 20:21 98.9 87 18 136/87 (103) 98 03/23/17 16:00 97.4 57 17 125/68 (87) 99 03/23/17 14:54 52 16 114/78 (90) 98 Room Air 03/23/17 14:45 55 16 129/72 (91) 97 Room Air 03/23/17 14:30 47 16 138/72 (94) 97 Room Air 03/23/17 14:16 97.3 52 16 142/73 (96) 100 Room Air 03/23/17 12:00 98.7 64 18 155/69 (97) 96 Result Diagram: 03/24/17 0650 03/23/17 0703 Other Results Laboratory Tests Test 03/22/17 04:45 03/22/17 14:00 03/22/17 15:29 03/23/17 07:03 White Blood Count 9.9 TH/MM3 Red Blood Count 4.95 MIL/MM3 Hemoglobin 14.5 GM/DL Hematocrit 43.2 % Mean Corpuscular Volume 87.2 FL Mean Corpuscular Hemoglobin 29.3 PG Mean Corpuscular Hemoglobin Concent 33.6 % Red Cell Distribution Width 13.4 % Platelet Count 182 TH/MM3 Mean Platelet Volume 7.7 FL Neutrophils (%) (Auto) 89.2 % Lymphocytes (%) (Auto) 8.1 % Monocytes (%) (Auto) 1.6 % Eosinophils (%) (Auto) 1.0 % Basophils (%) (Auto) 0.1 % Neutrophils # (Auto) 8.8 TH/MM3 Lymphocytes # (Auto) 0.8 TH/MM3 Monocytes # (Auto) 0.2 TH/MM3 Eosinophils # (Auto) 0.1 TH/MM3 Basophils # (Auto) 0.0 TH/MM3 CBC Comment DIFF FINAL Differential Comment Blood Urea Nitrogen 12 MG/DL 8 MG/DL Creatinine 0.97 MG/DL 0.72 MG/DL Random Glucose 152 MG/DL 102 MG/DL Total Protein 7.2 GM/DL 5.7 GM/DL Albumin 3.7 GM/DL 2.8 GM/DL Calcium Level 9.2 MG/DL 8.6 MG/DL Alkaline Phosphatase 200 U/L 169 U/L Aspartate Amino Transf (AST/SGOT) 267 U/L 95 U/L Alanine Aminotransferase (ALT/SGPT) 212 U/L 178 U/L Total Bilirubin 1.1 MG/DL 1.2 MG/DL Sodium Level 140 MEQ/L 135 MEQ/L Potassium Level 3.6 MEQ/L 4.1 MEQ/L Chloride Level 102 MEQ/L 102 MEQ/L Carbon Dioxide Level 30.7 MEQ/L 27.2 MEQ/L Anion Gap 7 MEQ/L 6 MEQ/L Lipase 2790 U/L 267 U/L Prothrombin Time 11.7 SEC Prothromb Time International Ratio 1.1 RATIO Urine Color YELLOW Urine Turbidity CLEAR Urine pH 6.0 Urine Specific [place] 1.010 Urine Protein NEG mg/dL Urine Glucose (UA) NEG mg/dL Urine Ketones NEG mg/dL Urine Occult Blood NEG Urine Nitrite NEG Urine Bilirubin NEG Urine Urobilinogen 2.0 MG/DL Urine Leukocyte Esterase NEG Microscopic Urinalysis Comment CULT NOT INDICATED Estimat Glomerular Filtration Rate 115 ML/MIN Test 03/24/17 06:50 White Blood Count 7.1 TH/MM3 Red Blood Count 4.26 MIL/MM3 Hemoglobin 12.5 GM/DL Hematocrit 37.0 % Mean Corpuscular Volume 86.9 FL Mean Corpuscular Hemoglobin 29.3 PG Mean Corpuscular Hemoglobin Concent 33.7 % Red Cell Distribution Width 12.9 % Platelet Count 155 TH/MM3 Mean Platelet Volume 8.0 FL Neutrophils (%) (Auto) 67.8 % Lymphocytes (%) (Auto) 23.7 % Monocytes (%) (Auto) 6.9 % Eosinophils (%) (Auto) 1.4 % Basophils (%) (Auto) 0.2 % Neutrophils # (Auto) 4.8 TH/MM3 Lymphocytes # (Auto) 1.7 TH/MM3 Monocytes # (Auto) 0.5 TH/MM3 Eosinophils # (Auto) 0.1 TH/MM3 Basophils # (Auto) 0.0 TH/MM3 CBC Comment DIFF FINAL Differential Comment Imaging Last Impressions Chest X-Ray 03/22/17 0631 Signed Impressions: Service Date/Time: Wednesday, March 22, 2017 06:35 - CONCLUSION: Hypoinflation with no acute cardiac pulmonary process. Luis Olvera MD Abdomen/Pelvis CT 03/22/17 0000 Signed Impressions: Service Date/Time: Wednesday, March 22, 2017 05:42 - CONCLUSION: 1. I believe patient's symptoms are due to a biliary ductal stone measuring 8 mm in diameter with resulting intrahepatic and extrahepatic biliary ductal dilatation, gallbladder distention and mild pericholecystic fluid. 2. Otherwise negative. The vermiform appendix is identified and is radiographically normal. The appendiceal tip is juxtaposed between the right hepatic lobe and ascending colon. Luis Olvera MD Objective Remarks GENERAL: This is a well-nourished, well-developed patient, in no apparent distress. CARDIOVASCULAR: Regular rate and rhythm without murmurs, gallops, or rubs. RESPIRATORY: Clear to auscultation. Breath sounds equal bilaterally. No wheezes , rales, or rhonchi. GASTROINTESTINAL: Abdomen soft, RUQ tender with palpation, nondistended. MUSCULOSKELETAL: Extremities without clubbing, cyanosis, or edema. No joint tenderness, effusion, or edema noted. No calf tenderness. Negative Homans sign bilaterally. NEUROLOGICAL: Awake and alert. No focal deficits appreciated. Motor and sensory grossly within normal limits. Five out of 5 muscle strength in all muscle groups. Normal speech. A/P Problem List: (1) Pancreatitis due to biliary obstruction ICD Codes: K85.90 - Acute pancreatitis without necrosis or infection, unspecified; K83.1 - Obstruction of bile duct Status: Acute Plan: CT scan reviewed and reveals Biliary ductal stone measuring 8 mm in diameter with resulting intrahepatic and extrahepatic biliary ductal dilation, gallbladder distention and mild pericholecystic fluid. Lipase 2790 (03/22) --> 267 (03/24) Dilaudid IV as needed for pain [place] causing itching, Benadryl ordered as needed PO pain medication changed to Percocet 5/325 Q6H as needed for pain Consult GI discussed with due to patient's previous Nesha-en-Y surgery will need interventional radiology Discussed case and a CT scan with General surgery Dr. Quinteros (03/22). Dr. Quinteros would like general surgical consult after interventional radiology procedure complete Plan for percutaneous cholangiogram today (03/23) Per IR - Unable to access intrahepatic biliary tree. Stuck GB (transhepatic) with micropunture needle. 3 -Fr dilator placed into GB. Unable to opacify intrahepatic ducts with GB access. Will let drain for next 48 hours then will bring back for PTHD IR placed cholecystostomy tube. decompression then plan to go back to IR tomorrow NPO after midnight SCDs for DVT prophylaxis (2) Choledocholithiasis ICD Codes: K80.50 - Calculus of bile duct without cholangitis or cholecystitis without obstruction Plan: see above (3) Transaminitis ICD Codes: R74.0 - Nonspecific elevation of levels of transaminase and lactic acid dehydrogenase [LDH] Plan: see above (4) Hypercholesteremia ICD Codes: E78.00 - Pure hypercholesterolemia, unspecified Plan: hold statin at this time Problem Qualifiers (1) Pancreatitis due to biliary obstruction: Qualified Codes: K85.10 - Biliary acute pancreatitis without necrosis or infection Bindu Thomas Mar 24, 2017 08:32
[2017-03-24] MEDS: SODIUM CHLORIDE 0.9% FLUSH 10 ML FLUSH IV FLUSH SCH ×2 (09:00→20:49)
[2017-03-24 09:03] LABS: INDIRECT BILIRUBIN 0.6 MG/DL (0.0-0.8); TOTAL BILIRUBIN ADULT 0.8 MG/DL (0.2-1.0)
[2017-03-24] MEDS: oxyCODONE/ACETAMINOPHEN 5 MG/325 MG TAB PO PRN ×3 (09:22→21:54)
[2017-03-24] MEDS: HYDROmorphone HCL PF 1 MG/ML VIAL IV PUSH PRN (13:05)
--- NOTE | 2017-03-24 15:36 | HHI.GIFU ---
Subjective Remarks Resting in bed. Mild RUQ tenderness- worse with movement. No n/v. Tolerating diet. (Priscilla Noel) Objective Vitals I&O Vital Signs Date Time Temp Pulse Resp B/P (MAP) Pulse Ox O2 Delivery O2 Flow Rate FiO2 03/24/17 12:17 97 21 03/24/17 11:53 97.1 67 18 130/85 (100) 97 03/24/17 08:00 96.8 78 18 136/82 (100) 99 03/24/17 04:34 98.2 64 18 129/80 (96) 98 03/24/17 02:10 Room Air 03/24/17 01:59 16 03/24/17 00:53 99.4 89 18 125/72 (89) 97 03/23/17 20:21 98.9 87 18 136/87 (103) 98 03/23/17 16:00 97.4 57 17 125/68 (87) 99 I/O 03/23/17 03/23/17 03/23/17 03/24/17 03/24/17 03/24/17 07:00 15:00 23:00 07:00 15:00 23:00 Intake Total 0 ml 240 ml 240 ml 720 ml Output Total 650 ml 1100 ml 250 ml Balance 0 ml -650 ml -860 ml -10 ml 720 ml Intake Oral 0 ml 240 ml 240 ml 720 ml Output Urine Total 650 ml 900 ml Drainage Total 200 ml 250 ml # Voids 3 2 3 2 # Bowel Movements 0 0 0 0 0 Laboratory Laboratory Tests Test 03/24/17 06:50 White Blood Count 7.1 Red Blood Count 4.26 Hemoglobin 12.5 Hematocrit 37.0 Mean Corpuscular Volume 86.9 Mean Corpuscular Hemoglobin 29.3 Mean Corpuscular Hemoglobin Concent 33.7 Red Cell Distribution Width 12.9 Platelet Count 155 Mean Platelet Volume 8.0 Neutrophils (%) (Auto) 67.8 Lymphocytes (%) (Auto) 23.7 Monocytes (%) (Auto) 6.9 Eosinophils (%) (Auto) 1.4 Basophils (%) (Auto) 0.2 Neutrophils # (Auto) 4.8 Lymphocytes # (Auto) 1.7 Monocytes # (Auto) 0.5 Eosinophils # (Auto) 0.1 Basophils # (Auto) 0.0 CBC Comment DIFF FINAL Differential Comment Total Bilirubin 0.8 Direct Bilirubin 0.2 Indirect Bilirubin 0.6 Aspartate Amino Transf (AST/SGOT) 50 Alanine Aminotransferase (ALT/SGPT) 147 Alkaline Phosphatase 161 Total Protein 6.1 Albumin 2.9 Imaging Last Impressions Percutaneous Cholangiogram 03/23/17 0000 Signed Impressions: Service Date/Time: Thursday, March 23, 2017 12:41 - CONCLUSION: 1. Uncomplicated percutaneous cholecystostomy as above. 2. Plan to let the patient drain for the next 48 hours. We'll bring the patient back down and perform a complete cholangiogram through the gallbladder access. We ccan use the cholangiogram to performed a PTHD at that time. Luis Olvera MD Chest X-Ray 03/22/17 0631 Signed Impressions: Service Date/Time: Wednesday, March 22, 2017 06:35 - CONCLUSION: Hypoinflation with no acute cardiac pulmonary process. Luis Olvera MD Abdomen/Pelvis CT 03/22/17 0000 Signed Impressions: Service Date/Time: Wednesday, March 22, 2017 05:42 - CONCLUSION: 1. I believe patient's symptoms are due to a biliary ductal stone measuring 8 mm in diameter with resulting intrahepatic and extrahepatic biliary ductal dilatation, gallbladder distention and mild pericholecystic fluid. 2. Otherwise negative. The vermiform appendix is identified and is radiographically normal. The appendiceal tip is juxtaposed between the right hepatic lobe and ascending colon. Luis Olvera MD Physical Exam HEENT: Normocephalic; atraumatic; no jaundice. CHEST: CTA CARDIAC: RRR ABDOMEN: Soft, nondistended, mild tenderness on exam; no hepatosplenomegaly; bowel sounds are present in all four quadrants. EXTREMITIES: No clubbing, cyanosis, or edema. SKIN: Normal; no rash; no jaundice. 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 (Priscilla NoelP) Assessment and Plan Plan ASSESSMENT: - GS pancreatitis. Abdomen/Pelvis CT 03/22/17--> I believe the patient's symptoms are due to a biliary ductal stone measuring 8 mm in diameter with resulting intrahepatic and extrahepatic biliary ductal dilatation, gallbladder distention, and mild pericholecystic fluid. Otherwise negative. The vermiform appendix is identified and is radiographically normal. The appendiceal tip is juxtaposed between the right hepatic lobe and ascending colon. Pt with hx of Nesha-en-Y gastric bypass. Went to IR fr PTHC (03/23/17)---> Unable to access intrahepatic biliary tree. Stuck GB (transhepatic) with micropunture needle. 3-Fr dilator placed into GB. Unable to opacify intrahepatic ducts with GB access. Will let drain for next 48 hours then will bring back for PTHD. Clinically, RUQ improved, still with some tenderness-worse with movement. LFT T Bili 0.8, AST 50, ALT 147, Alk PHosph 161. Biliary drain patent. - Choledocholithiasis. 8mm CBD sone. Has hx of gastric bypass and therefore IR consulted for PTHC- was unable to access, plan to let drain for 48 hours and then they will reattempt. - Elevated lfts secondary to above. PLAN: - JEAN-PIERRE - Monitor labs - Supportive care - Plan is to leave biliary drain in place for 48 hours and then reattempt PTHC - Consider GS evaluation after above - Further recommendations to follow based on results of above - Patient seen and examined by Dr. Meek and myself and this note is written on his behalf. (Priscilla Noel) Physician Comments Patient seen and examined Agree with above Continue with current supportive care Monitor labs Case discussed with Dr. olvera the plan is to pursue PTC tomorrow and based on that we can make further plans if biliary access is gained by radiology we can attempt an ERCP to remove the stone if that is not feasible per IR (Farhan Meek MD) Priscilla Noel Mar 24, 2017 15:36 Farhan Meek MD Mar 24, 2017 21:26
[2017-03-24] MEDS: SODIUM CHLOR 0.9% 1000 ML INJ 1,000 ML IV SCH (20:50)
[2017-03-24] MEDS ORDERED: INSULIN HUMAN REGULAR 1,000 UNITS/10 ML VIAL SQ PRN (22:15)
[2017-03-24] MEDS ORDERED: LACTATED RINGER'S 1000 ML IV PRN (22:15)
[2017-03-24] MEDS ORDERED: CHLORHEXIDINE GLUCONATE 2 % 1 PACK (2 CLOTHS) TOPICAL PRN (22:15)
[2017-03-24] MEDS ORDERED: SODIUM CHLORID 0.9% 500 ML IV PRN (22:15)
[2017-03-24] MEDS ORDERED: POVIDONE IODINE 5% (ANTISEPSIS KIT) 4 APPLICATIONS EACH NARE PRN (22:15)
[2017-03-24] MEDS ORDERED: METOPROLOL TARTRATE 25 MG TAB PO PRN (22:15)
[2017-03-25] VITALS (8 sets, daily range): BP systolic 118–142; BP diastolic 77–92; PULSE 52–80; RESP 16–18; TEMP 96.6–97.9; O2SAT 96–98
[2017-03-25 08:24] LABS: AUTOMATED NEUTROPHIL # 3.2 TH/MM3 (1.8-7.7); BASOPHIL % 0.3 % (0.0-2.0); EOSINOPHIL # 0.2 TH/MM3 (0-0.4); EOSINOPHIL % 2.9 % (0.0-4.0); HEMO FLAGS DIFF FINAL; LYMPH % 28.3 % (9.0-44.0); LYMPHOCYTE # 1.5 TH/MM3 (1.0-4.8); MEAN CELL VOLUME 87.4 FL (80.0-100.0); MEAN CORPUSCULAR HEMOGLOBIN 29.2 PG (27.0-34.0); MEAN CORPUSCULAR HGB CONC 33.4 % (32.0-36.0); MONO % 8.5 % (0.0-8.0); PLATELET COUNT 171 TH/MM3 (150-450); RED BLOOD COUNT 4.46 MIL/MM3 (4.50-5.90); RED CELL DISTRIBUTION WIDTH 13.3 % (11.6-17.2); WHITE BLOOD COUNT 5.4 TH/MM3 (4.0-11.0)
--- NOTE | 2017-03-25 08:30 | HHI.PR ---
Subjective Remarks Pt reports that his RUQ abd pain is relatively unchanged He was tolerating liquids prior to midnight without much discomfort. Nursing staff overnight reported 350cc of biliary fluid drainage and pt currently with 100cc of bilious drainage this morning. Objective Vitals Vital Signs Date Time Temp Pulse Resp B/P (MAP) Pulse Ox O2 Delivery O2 Flow Rate FiO2 03/25/17 04:40 97.1 55 16 138/85 (102) 97 03/25/17 01:33 Room Air 03/25/17 00:10 97.4 54 16 118/77 (91) 97 03/24/17 22:29 17 03/24/17 21:15 96.7 70 16 143/83 (103) 97 03/24/17 15:29 97.0 59 18 130/77 (94) 98 03/24/17 12:17 97 21 03/24/17 11:53 97.1 67 18 130/85 (100) 97 Result Diagram: 03/24/17 0650 03/23/17 0703 Other Results Laboratory Tests Test 03/24/17 06:50 03/25/17 07:27 White Blood Count 7.1 TH/MM3 Red Blood Count 4.26 MIL/MM3 Hemoglobin 12.5 GM/DL Hematocrit 37.0 % Mean Corpuscular Volume 86.9 FL Mean Corpuscular Hemoglobin 29.3 PG Mean Corpuscular Hemoglobin Concent 33.7 % Red Cell Distribution Width 12.9 % Platelet Count 155 TH/MM3 Mean Platelet Volume 8.0 FL Neutrophils (%) (Auto) 67.8 % Lymphocytes (%) (Auto) 23.7 % Monocytes (%) (Auto) 6.9 % Eosinophils (%) (Auto) 1.4 % Basophils (%) (Auto) 0.2 % Neutrophils # (Auto) 4.8 TH/MM3 Lymphocytes # (Auto) 1.7 TH/MM3 Monocytes # (Auto) 0.5 TH/MM3 Eosinophils # (Auto) 0.1 TH/MM3 Basophils # (Auto) 0.0 TH/MM3 CBC Comment DIFF FINAL Differential Comment Total Bilirubin 0.8 MG/DL Direct Bilirubin 0.2 MG/DL Indirect Bilirubin 0.6 MG/DL Aspartate Amino Transf (AST/SGOT) 50 U/L Alanine Aminotransferase (ALT/SGPT) 147 U/L Alkaline Phosphatase 161 U/L Total Protein 6.1 GM/DL Albumin 2.9 GM/DL Imaging Last Impressions Chest X-Ray 03/22/17 0631 Signed Impressions: Service Date/Time: Wednesday, March 22, 2017 06:35 - CONCLUSION: Hypoinflation with no acute cardiac pulmonary process. Luis Olvera MD Abdomen/Pelvis CT 03/22/17 0000 Signed Impressions: Service Date/Time: Wednesday, March 22, 2017 05:42 - CONCLUSION: 1. I believe patient's symptoms are due to a biliary ductal stone measuring 8 mm in diameter with resulting intrahepatic and extrahepatic biliary ductal dilatation, gallbladder distention and mild pericholecystic fluid. 2. Otherwise negative. The vermiform appendix is identified and is radiographically normal. The appendiceal tip is juxtaposed between the right hepatic lobe and ascending colon. Luis Olvera MD Objective Remarks General: NAD, AAOx3 Chest: CTA Cardiac: Regular Abd: +BS, soft ND, RUQ tenderness with minimal palpation, external biliary drainage catheter in place A/P Problem List: (1) Pancreatitis due to biliary obstruction ICD Codes: K85.90 - Acute pancreatitis without necrosis or infection, unspecified; K83.1 - Obstruction of bile duct Status: Acute Plan: - Pt is a 51 y/o male with previous Nesha-en-Y gastric bypass in 2014 who was admitted with complaints of abdominal pain and was found to have gallstone pancreatitis. - CT scan reviewed and reveals biliary ductal stone measuring 8 mm in diameter with resulting intrahepatic and extrahepatic biliary ductal dilation, gallbladder distention and mild pericholecystic fluid. - Lipase 2790 (03/22) --> 267 (03/24) - Pain control PRN. Percocet/Dilaudid IV as needed for pain - GI following. Due to patient's previous Nesha-en-Y surgery he was recommended interventional radiology evaluation - Case and a CT scan discussed with General surgery, Dr. Quinteros (03/22). Dr. Quinteros would like general surgical consult after interventional radiology procedure complete - Pt underwent attempted percutaneous cholangiogram (03/23) but they were unable to access intrahepatic biliary tree. Per report, GB was stuck transhepatic with micropuncture needle and 3-Fr dilator placed into GB. Unable to opacify intrahepatic ducts with GB access. IR placed cholecystostomy tube. - Pt was recommended to allow for biliary decompression/drainage for 48 hours - Pt planned to return to IR today for repeat attempt at [facility] ?ERCP with [facility] - Repeat labs for today are pending. - SCDs for DVT prophylaxis (2) Choledocholithiasis ICD Codes: K80.50 - Calculus of bile duct without cholangitis or cholecystitis without obstruction Plan: - See above (3) Transaminitis ICD Codes: R74.0 - Nonspecific elevation of levels of transaminase and lactic acid dehydrogenase [LDH] Plan: - See above (4) Hypercholesteremia ICD Codes: E78.00 - Pure hypercholesterolemia, unspecified Plan: - Hold statin at this time Assessment and Plan Patient examined. Assessment and plan formulated with Cynthia Brandon PA-C. I agree with the above. IR extracted stone in cbd and left biliary drain will discuss timing of lap vega with dr Quinteros. Problem Qualifiers (1) Pancreatitis due to biliary obstruction: Qualified Codes: K85.10 - Biliary acute pancreatitis without necrosis or infection Cynthia Brandon Mar 25, 2017 08:30 Pranav Henning MD Mar 25, 2017 13:19
[2017-03-25 08:47] LABS: ANION GAP 6 MEQ/L (5-15); AST (GOT) 26 U/L (15-37); BICARBONATE 29.9 MEQ/L (21.0-32.0); BLOOD UREA NITROGEN 12 MG/DL (7-18); CHLORIDE 102 MEQ/L (98-107); GLOMERULAR FILTRATION RATE 93 ML/MIN (>89); POTASSIUM 3.7 MEQ/L (3.5-5.1); SODIUM (NA) 138 MEQ/L (136-145)
[2017-03-25 08:49] LABS: ALT (GPT) 117 U/L (12-78)
[2017-03-25 08:51] LABS: ALKALINE PHOSPHATASE 160 U/L (45-117); TOTAL BILIRUBIN ADULT 0.6 MG/DL (0.2-1.0)
[2017-03-25] MEDS: SODIUM CHLORIDE 0.9% FLUSH 10 ML FLUSH IV FLUSH SCH ×2 (09:00→21:24)
[2017-03-25] MEDS ORDERED: LEVOFLOXACIN 500 MG PREMIX INJ 100 ML IV ONE (10:51)
[2017-03-25] MEDS ORDERED: PROPOFOL 200 MG/20 ML AMP IV ONE (11:47)
[2017-03-25] MEDS ORDERED: NEOSTIGMINE 3 MG/3 ML SYR IV ONE (11:47)
[2017-03-25] MEDS ORDERED: ONDANSETRON HCL 4 MG/2 ML VIAL IV PUSH ONE (11:48)
--- NOTE | 2017-03-25 12:02 | PD.RAD ---
Post Procedure Progress Note Pre Procedure Diagnosis: (1) Choledocholithiasis (2) Pancreatitis due to biliary obstruction (3) Biliary obstruction Post Procedure Diagnosis: (1) Choledocholithiasis (2) Biliary obstruction (3) Pancreatitis due to biliary obstruction Procedure Date: Mar 25, 2017 Supervising Radiologist: Luis Olvera Proceduralist/Assist: Nic Snyder, RT(R), Kyaw Sy, RT(R), Jazmine Del Castillo RT(R)() Anesthesia: General Plan of Activity Patient to Unit: PACU Patient Condition: Good See PACS Report for procedural detail/treatment Drainage Procedure Procedure 1 Imaging Guidance: Fluoroscopy Side: Right Procedure Type: Biliary Drainage Procedure: Placement Slovenian: 8 Drainage: [place] drainage Fluid Description: Green Procedure 2 Imaging Guidance: Fluoroscopy Side: Right Procedure Type: Cholecystostomy Procedure: Evaluation (Tube cholangiogram) Procedure 3 Imaging Guidance: Fluoroscopy Findings: Tube cholangiogram showed a large stone in distal duct with partial biliary obstruction. Accessed biliary tree with fluoro guidance. 7mm APPRENTICE LINEMAN THIRD STEP sphincter with anthony extraction of large stone. 8 Fr biliary drain placed Luis Olvera MD Mar 25, 2017 12:02
[2017-03-25] MEDS ORDERED: DO NOT ADM ANY ANTICOAGULANT DRUGS PRN (12:03)
[2017-03-25] MEDS ORDERED: IOHEXOL 350 MG/ML 100 ML BTL (for RAD DIAG) OTHER ONE (12:08)
[2017-03-25] MEDS ORDERED: *morphine SULFATE 8 MG/ML PERIprocedure ONLY ONE (12:23)
--- NOTE | 2017-03-25 14:24 | HHI.GIFU ---
Subjective Remarks Pt resting in bed, s/p cholecystostomy and biliary drain placement. c/o RUQ soreness. (Carol Swanson) Objective Vitals I&O Vital Signs Date Time Temp Pulse Resp B/P (MAP) Pulse Ox O2 Delivery O2 Flow Rate FiO2 03/25/17 13:00 97.0 69 18 136/81 (99) 96 03/25/17 12:50 98 21 03/25/17 12:30 66 16 120/80 (93) 98 Room Air 03/25/17 12:15 64 16 134/79 (97) 94 Room Air 03/25/17 12:00 98.1 66 16 138/81 (100) 97 Room Air 03/25/17 08:00 97.8 52 18 128/77 (94) 98 03/25/17 04:40 97.1 55 16 138/85 (102) 97 03/25/17 01:33 Room Air 03/25/17 00:10 97.4 54 16 118/77 (91) 97 03/24/17 22:29 17 03/24/17 21:15 96.7 70 16 143/83 (103) 97 03/24/17 15:29 97.0 59 18 130/77 (94) 98 I/O 03/24/17 03/24/17 03/24/17 03/25/17 03/25/17 03/25/17 07:00 15:00 23:00 07:00 15:00 23:00 Intake Total 240 ml 720 ml 480 ml 240 ml 0 ml Output Total 250 ml 275 ml 200 ml Balance -10 ml 720 ml 205 ml 40 ml 0 ml Intake Oral 240 ml 720 ml 480 ml 240 ml IV Total 0 ml Drainage Total 250 ml 275 ml 200 ml # Voids 3 2 4 2 # Bowel Movements 0 0 0 0 Laboratory Laboratory Tests Test 03/25/17 07:27 White Blood Count 5.4 Red Blood Count 4.46 Hemoglobin 13.0 Hematocrit 39.0 Mean Corpuscular Volume 87.4 Mean Corpuscular Hemoglobin 29.2 Mean Corpuscular Hemoglobin Concent 33.4 Red Cell Distribution Width 13.3 Platelet Count 171 Mean Platelet Volume 7.6 Neutrophils (%) (Auto) 60.0 Lymphocytes (%) (Auto) 28.3 Monocytes (%) (Auto) 8.5 Eosinophils (%) (Auto) 2.9 Basophils (%) (Auto) 0.3 Neutrophils # (Auto) 3.2 Lymphocytes # (Auto) 1.5 Monocytes # (Auto) 0.5 Eosinophils # (Auto) 0.2 Basophils # (Auto) 0.0 CBC Comment DIFF FINAL Differential Comment Blood Urea Nitrogen 12 Creatinine 0.86 Random Glucose 90 Total Protein 6.9 Albumin 3.2 Calcium Level 8.9 Alkaline Phosphatase 160 Aspartate Amino Transf (AST/SGOT) 26 Alanine Aminotransferase (ALT/SGPT) 117 Total Bilirubin 0.6 Sodium Level 138 Potassium Level 3.7 Chloride Level 102 Carbon Dioxide Level 29.9 Anion Gap 6 Estimat Glomerular Filtration Rate 93 Imaging Last Impressions Percutaneous Cholangiogram 03/23/17 0000 Signed Impressions: Service Date/Time: Thursday, March 23, 2017 12:41 - CONCLUSION: 1. Uncomplicated percutaneous cholecystostomy as above. 2. Plan to let the patient drain for the next 48 hours. We'll bring the patient back down and perform a complete cholangiogram through the gallbladder access. We ccan use the cholangiogram to performed a PTHD at that time. Luis Olvera MD Chest X-Ray 03/22/17 0631 Signed Impressions: Service Date/Time: Wednesday, March 22, 2017 06:35 - CONCLUSION: Hypoinflation with no acute cardiac pulmonary process. Luis Olvera MD Abdomen/Pelvis CT 03/22/17 0000 Signed Impressions: Service Date/Time: Wednesday, March 22, 2017 05:42 - CONCLUSION: 1. I believe patient's symptoms are due to a biliary ductal stone measuring 8 mm in diameter with resulting intrahepatic and extrahepatic biliary ductal dilatation, gallbladder distention and mild pericholecystic fluid. 2. Otherwise negative. The vermiform appendix is identified and is radiographically normal. The appendiceal tip is juxtaposed between the right hepatic lobe and ascending colon. Luis Olvera MD Physical Exam HEENT: Normocephalic; atraumatic; no jaundice. CHEST: CTA CARDIAC: RRR ABDOMEN: Soft, nondistended, RUQ tenderness; no hepatosplenomegaly; bowel sounds are present in all four quadrants. EXTREMITIES: No clubbing, cyanosis, or edema. SKIN: Normal; no rash; no jaundice. CHICKEN HANGER: No focal deficits; alert and oriented times three. (Carol Swanson) Assessment and Plan Plan ASSESSMENT: - GS pancreatitis. Abdomen/Pelvis CT 03/22/17--> I believe the patient's symptoms are due to a biliary ductal stone measuring 8 mm in diameter with resulting intrahepatic and extrahepatic biliary ductal dilatation, gallbladder distention, and mild pericholecystic fluid. Otherwise negative. The vermiform appendix is identified and is radiographically normal. The appendiceal tip is juxtaposed between the right hepatic lobe and ascending colon. Pt with hx of Nesha-en-Y gastric bypass. Went to IR fr PTHC (03/23/17)---> Unable to access intrahepatic biliary tree. Stuck GB (transhepatic) with micropunture needle. 3-Fr dilator placed into GB. Unable to opacify intrahepatic ducts with GB access. s/p IR placement ciliary drain, cholecystostomy, stone extraction - Choledocholithiasis. 8mm CBD stone s/p extraction by IR - Elevated lfts secondary to above. PLAN: - JEAN-PIERRE - rck LFTs - Supportive care - Consider GS evaluation now that drain & cholecystostomy placed - Patient seen and examined by Dr. Meek and myself and this note is written on his behalf. (Carol Swanson) Physician Comments Patient seen and examined Agree with above Continue with current supportive care Monitor labs IR were successful in removing the stone Recommend surgical evaluation for cholecystectomy All much to add from a GI perspective therefore we will sign off (Farhan Meek MD) Carol Swanson Mar 25, 2017 14:24 Farhan Meek MD Mar 25, 2017 20:29
--- NOTE | 2017-03-25 14:41 | RADRPT ---
EXAM DATE/TIME: 03/25/2017 10:36 [facility] COMPARISON: No previous studies available for comparison. INDICATIONS : Patient with biliary obstruction in need of biliary drain placement with stone extraction. MEDICAL HISTORY : HLD HTN Right carotid stenosis Diabetes GERD SURGICAL HISTORY : Gastric bypass 2014 ENCOUNTER: Subsequent ACUITY: 4 - 6 days PAIN SCORE: 0/10 FLUORO TIME: 12.8 minutes IMAGE SERIES: SEDATION TIME: minutes CONTRAST: 70 cc Omnipaque (iohexol) 350 Intra-procedural antibiotics were given as prescribed above. DEVICE(S): 1.) 8 Icelandic internal/external biliary drain Anesthesia and pain control was provided by the Anesthesia department. PROCEDURE : 1. Ultrasound guided puncture of the biliary tree. 2. Percutaneous antegrade cholangiogram. 3. Biliary stent placement. 4. Conscious sedation with continuous EKG and oximetry monitoring. The risks, benefits and alternatives to the procedure were explained and verbal and written consent w as obtained. The site was prepped in sterile fashion. Full sterile technique was used, including ca p, mask, sterile gloves and gown and a large sterile sheet. Hand hygiene and 2% chlorhexidine and/or betadine/alcohol prep was utilized per protocol for cutaneous antisepsis. Sterile gel and sterile p robe cover were utilized for ultrasound guidance. The skin and subcutaneous tissues were infiltrated with local anesthetic solution. Through the existing cholecystostomy tube, contrast and saline was injected to opacify the gallbladde r lumen, retrograde flow through the cystic duct and into the CBD as well as the intrahepatic ducts. The intrahepatic ducts were diminutive with no dilation. Mild prominence of the CBD with a 9-10 mm fi lling defect in the distal CBD characteristic of a ductal stone. With opacification of the intrahepatic ducts, an area in the mid right hepatic lobe was selected. The skin was anesthetized with approximately 3 cc 1% Xylocaine. A 22 Chiba needle was advanced towards t he duct. Once accessed, an 018 wire was advanced into the extrahepatic biliary tree. A hockey-stick c atheter and Glidewire were manipulated past the stone, through the sphincter and into the small bowel . Over the wire, a 6 Icelandic, 25 cm side-port sheath was advanced into the biliary system. A 7 mm x 4 cm balloon was advanced across the sphincter and balloon angioplasty performed. A 5 Icelandic Shay ca theter was then advanced over the wire and insufflated to advance the stone through the sphincter and into the small bowel. Contrast injection through the side port of the sheath showed no residual ston e disease. At this point, the balloon in the removed and replaced with a 8 Icelandic biliary catheter. T he catheter was formed in the second portion of the duodenum. Conscious sedation was performed with the prescribed dosages and duration as above in the presence of an independent trained radiology nurse to assist in the monitoring of the patient. EKG and oximetry remained stable throughout the procedure. The patient tolerated the procedure well and there were n o complications. The patient was sent to post anesthesia recovery in stable condition. CONCLUSION: 1. Tube cholangiogram. 2. Large, 9-10 mm isolated stone in the distal CBD. 3. PTHD with biliary stent placement. 4. CONTACT AGENT of the sphincter with Shay stone extraction Luis Olvera MD on March 25, 2017 at 14:18 Board Certified Radiologist. This report was verified electronically.
[2017-03-25] MEDS: HYDROmorphone HCL PF 1 MG/ML VIAL IV PUSH PRN (15:15)
[2017-03-25] MEDS: oxyCODONE/ACETAMINOPHEN 5 MG/325 MG TAB PO PRN (18:18)
[2017-03-25] MEDS: diphenhydrAMINE HCL 25 MG CAP PO PRN (21:23)
[2017-03-25] MEDS: SODIUM CHLOR 0.9% 1000 ML INJ 1,000 ML IV SCH (21:25)
[2017-03-26 00:35] VITALS: BP 123/78; PULSE 66; RESP 16; TEMP 97.7; O2SAT 97
[2017-03-26] MEDS: oxyCODONE/ACETAMINOPHEN 5 MG/325 MG TAB PO PRN ×4 (00:37→19:32)
[2017-03-26 03:40] VITALS: BP 142/92; PULSE 71; RESP 16; TEMP 96.6; O2SAT 98
[2017-03-26] MEDS: diphenhydrAMINE HCL 25 MG CAP PO PRN ×2 (03:49→09:58)
[2017-03-26] MEDS: HYDROmorphone HCL PF 1 MG/ML VIAL IV PUSH PRN ×4 (03:49→22:03)
[2017-03-26 08:00] VITALS: BP 126/84; PULSE 67; RESP 18; TEMP 97.8; O2SAT 97
[2017-03-26 08:24] LABS: ALT (GPT) 90 U/L (12-78); ANION GAP 3 MEQ/L (5-15); AST (GOT) 15 U/L (15-37); BICARBONATE 31.7 MEQ/L (21.0-32.0); BLOOD UREA NITROGEN 11 MG/DL (7-18); CHLORIDE 102 MEQ/L (98-107); GLOMERULAR FILTRATION RATE 92 ML/MIN (>89); SODIUM (NA) 137 MEQ/L (136-145)
[2017-03-26 08:26] LABS: ALKALINE PHOSPHATASE 143 U/L (45-117); TOTAL BILIRUBIN ADULT 0.7 MG/DL (0.2-1.0)
--- NOTE | 2017-03-26 09:36 | HHI.PR ---
Subjective Remarks some pain at ruq site. Objective Vitals heart reg lung cta abd ruq biliary drain and cholecystostomy tube. Vital Signs Date Time Temp Pulse Resp B/P (MAP) Pulse Ox O2 Delivery O2 Flow Rate FiO2 03/26/17 08:00 97.8 67 18 126/84 (98) 97 03/26/17 04:14 18 03/26/17 03:40 96.6 71 16 142/92 (109) 98 03/26/17 02:10 16 03/26/17 02:08 Room Air 03/26/17 00:35 97.7 66 16 123/78 (93) 97 03/25/17 20:40 97.9 71 17 131/84 (100) 96 03/25/17 16:00 96.7 80 18 130/78 (95) 97 03/25/17 13:00 97.0 69 18 136/81 (99) 96 03/25/17 12:50 98 21 03/25/17 12:30 66 16 120/80 (93) 98 Room Air 03/25/17 12:15 64 16 134/79 (97) 94 Room Air 03/25/17 12:00 98.1 66 16 138/81 (100) 97 Room Air 03/26/17 03/26/17 03/27/17 15:00 23:00 07:00 Intake Total 460 ml Balance 460 ml Intake Oral 460 ml # Voids 2 # Bowel Movements 0 Result Diagram: 03/25/17 0727 03/26/17 0715 Imaging Last Impressions Chest X-Ray 03/22/17 0631 Signed Impressions: Service Date/Time: Wednesday, March 22, 2017 06:35 - CONCLUSION: Hypoinflation with no acute cardiac pulmonary process. Luis Olvera MD Abdomen/Pelvis CT 03/22/17 0000 Signed Impressions: Service Date/Time: Wednesday, March 22, 2017 05:42 - CONCLUSION: 1. I believe patient's symptoms are due to a biliary ductal stone measuring 8 mm in diameter with resulting intrahepatic and extrahepatic biliary ductal dilatation, gallbladder distention and mild pericholecystic fluid. 2. Otherwise negative. The vermiform appendix is identified and is radiographically normal. The appendiceal tip is juxtaposed between the right hepatic lobe and ascending colon. Luis Olvera MD A/P Problem List: (1) Pancreatitis due to biliary obstruction ICD Codes: K85.90 - Acute pancreatitis without necrosis or infection, unspecified; K83.1 - Obstruction of bile duct Status: Acute Plan: - Pt is a 51 y/o male with previous Nesha-en-Y gastric bypass in 2014 who was admitted with complaints of abdominal pain and was found to have gallstone pancreatitis. - CT scan reviewed and reveals biliary ductal stone measuring 8 mm in diameter with resulting intrahepatic and extrahepatic biliary ductal dilation, gallbladder distention and mild pericholecystic fluid. - Lipase 2790 (03/22) --> 267 (03/24) - Pain control PRN. Percocet/Dilaudid IV as needed for pain - GI following. Due to patient's previous Nesha-en-Y surgery he was recommended interventional radiology evaluation - Case and a CT scan discussed with General surgery, Dr. Quinteros (03/22). Dr. Quinteros would like general surgical consult after interventional radiology procedure complete - Pt underwent attempted percutaneous cholangiogram (03/23) but they were unable to access intrahepatic biliary tree. Per report, GB was stuck transhepatic with micropuncture needle and 3-Fr dilator placed into GB. Unable to opacify intrahepatic ducts with GB access. IR placed cholecystostomy tube. - Pt was recommended to allow for biliary decompression/drainage for 48 hours - Pt returned to IR on 03/25 and stone removed. biliary drain in place and cholecystostomy tube in place AWAIT FURTHER PLANS PER IR AND GENERAL SURGERY. - (2) Choledocholithiasis ICD Codes: K80.50 - Calculus of bile duct without cholangitis or cholecystitis without obstruction Plan: - See above (3) Transaminitis ICD Codes: R74.0 - Nonspecific elevation of levels of transaminase and lactic acid dehydrogenase [LDH] Plan: - See above (4) Hypercholesteremia ICD Codes: E78.00 - Pure hypercholesterolemia, unspecified Plan: - Hold statin at this time Problem Qualifiers (1) Pancreatitis due to biliary obstruction: Qualified Codes: K85.10 - Biliary acute pancreatitis without necrosis or infection Pranav Henning MD Mar 26, 2017 09:36
[2017-03-26] MEDS: SODIUM CHLORIDE 0.9% FLUSH 10 ML FLUSH IV FLUSH SCH ×2 (09:59→19:31)
[2017-03-26 12:00] VITALS: BP 136/94; PULSE 69; RESP 18; TEMP 98.3; O2SAT 95
[2017-03-26 16:00] VITALS: BP 155/93; PULSE 80; RESP 18; TEMP 97.1; O2SAT 96
[2017-03-26 20:00] VITALS: BP 136/79; PULSE 66; RESP 17; TEMP 98.9; O2SAT 97
--- NOTE | 2017-03-26 20:11 | HHI.PR ---
Subjective Subjective Notes The patient basically feels well without any complaints of abdominal pain except at the site of the cholecystostomy tube which hurts when he moves. He is tolerating a diet and has no abdominal pain. Objective Vitals/I&O Vital Signs Date Time Temp Pulse Resp B/P (MAP) Pulse Ox O2 Delivery O2 Flow Rate FiO2 03/26/17 16:00 97.1 80 18 155/93 (113) 96 03/26/17 02:08 Room Air 03/25/17 12:50 21 Labs Laboratory Tests Test 03/26/17 07:15 Blood Urea Nitrogen 11 Creatinine 0.87 Random Glucose 89 Total Protein 7.0 Albumin 3.1 Calcium Level 8.7 Alkaline Phosphatase 143 Aspartate Amino Transf (AST/SGOT) 15 Alanine Aminotransferase (ALT/SGPT) 90 Total Bilirubin 0.7 Sodium Level 137 Potassium Level 4.0 Chloride Level 102 Carbon Dioxide Level 31.7 Anion Gap 3 Estimat Glomerular Filtration Rate 92 Radiology Last 72 hours Impressions Bile Duct Drainage 03/25/17 0918 Signed Impressions: Service Date/Time: Saturday, March 25, 2017 10:36 - CONCLUSION: 1. Tube cholangiogram. 2. Large, 9-10 mm isolated stone in the distal CBD. 3. PTHD with biliary stent placement. 4. INTERACTIVE DEVELOPER of the sphincter with Shay stone extraction Luis Olvera MD Cardiovascular: Regular Lungs: Clear Abdomen: Non-distended, Non-tender, BS normal Extremities: No edema Narrative Exam Both cholecystostomy tube and transhepatic cholangiocatheter are draining bile which is clearing. A/P Assessment and Plan Impression: 51-year-old gentleman status post Nesha-en-Y gastric bypass for morbid obesity which has been extremely successful. He was recently admitted with a single large common bile duct stone which was successfully removed by first placing a cholecystostomy tube to drain the gallbladder and take the pressure off the biliary system, followed by a percutaneous transhepatic cholangiocatheter which was able to provide access to push the stone through into the duodenum. The patient is very stable postprocedure. Plan: I talked with Dr. Olvera, who plans to remove the cholecystostomy tube prior to discharge. I've also discussed the situation with Dr. Anderson and he plans to do an elective cholecystectomy in the next 2-3 weeks; the common bile duct tube will be removed after the cholecystectomy. From a surgical standpoint, it is fine to discharge the patient after the removal of the cholecystostomy tube. He should return to see Dr. Anderson next week to plan the elective cholecystectomy. Doug Quinteros MD Mar 26, 2017 20:11
[2017-03-26] MEDS: SODIUM CHLOR 0.9% 1000 ML INJ 1,000 ML IV SCH (21:27)
[2017-03-27] VITALS: BP 130/84; PULSE 74; RESP 16; TEMP 98.4; O2SAT 98
[2017-03-27] MEDS: oxyCODONE/ACETAMINOPHEN 5 MG/325 MG TAB PO PRN ×2 (01:33→08:41)
[2017-03-27] MEDS: HYDROmorphone HCL PF 1 MG/ML VIAL IV PUSH PRN (04:03)
[2017-03-27 04:30] VITALS: BP 107/69; PULSE 77; RESP 18; TEMP 97.7; O2SAT 95
[2017-03-27 08:00] VITALS: BP 129/78; PULSE 68; RESP 18; TEMP 98.6; O2SAT 96
[2017-03-27] MEDS: SODIUM CHLORIDE 0.9% FLUSH 10 ML FLUSH IV FLUSH SCH (08:41)
--- NOTE | 2017-03-27 10:23 | HHI.PR ---
Subjective Remarks doing ok. eager for d/c Objective Vitals heart reg lung cta abd ruq biliary drain, cholecystostomy tube drain ext no edema Vital Signs Date Time Temp Pulse Resp B/P (MAP) Pulse Ox O2 Delivery O2 Flow Rate FiO2 03/27/17 08:00 98.6 68 18 129/78 (95) 96 03/27/17 04:30 97.7 77 18 107/69 (82) 95 03/27/17 00:00 98.4 74 16 130/84 (99) 98 03/26/17 20:00 98.9 66 17 136/79 (98) 97 03/26/17 16:00 97.1 80 18 155/93 (113) 96 03/26/17 12:00 98.3 69 18 136/94 (108) 95 Result Diagram: 03/25/17 0727 03/26/17 0715 Imaging Last Impressions Chest X-Ray 03/22/17 0631 Signed Impressions: Service Date/Time: Wednesday, March 22, 2017 06:35 - CONCLUSION: Hypoinflation with no acute cardiac pulmonary process. Luis Olvera MD Abdomen/Pelvis CT 03/22/17 0000 Signed Impressions: Service Date/Time: Wednesday, March 22, 2017 05:42 - CONCLUSION: 1. I believe patient's symptoms are due to a biliary ductal stone measuring 8 mm in diameter with resulting intrahepatic and extrahepatic biliary ductal dilatation, gallbladder distention and mild pericholecystic fluid. 2. Otherwise negative. The vermiform appendix is identified and is radiographically normal. The appendiceal tip is juxtaposed between the right hepatic lobe and ascending colon. Luis Olvera MD A/P Problem List: (1) Pancreatitis due to biliary obstruction ICD Codes: K85.90 - Acute pancreatitis without necrosis or infection, unspecified; K83.1 - Obstruction of bile duct Status: Acute Plan: - Pt is a 51 y/o male with previous Nesha-en-Y gastric bypass in 2014 who was admitted with complaints of abdominal pain and was found to have gallstone pancreatitis. - CT scan reviewed and reveals biliary ductal stone measuring 8 mm in diameter with resulting intrahepatic and extrahepatic biliary ductal dilation, gallbladder distention and mild pericholecystic fluid. - Lipase 2790 (03/22) --> 267 (03/24) - Pain control PRN. Percocet/Dilaudid IV as needed for pain - GI following. Due to patient's previous Nesha-en-Y surgery he was recommended interventional radiology evaluation - Case and a CT scan discussed with General surgery, Dr. Quinteros (03/22). Dr. Quinteros would like general surgical consult after interventional radiology procedure complete - Pt underwent attempted percutaneous cholangiogram (03/23) but they were unable to access intrahepatic biliary tree. Per report, GB was stuck transhepatic with micropuncture needle and 3-Fr dilator placed into GB. Unable to opacify intrahepatic ducts with GB access. IR placed cholecystostomy tube. - Pt was recommended to allow for biliary decompression/drainage for 48 hours - Pt returned to IR on 03/25 and stone removed. biliary drain in place and cholecystostomy tube in place Pt seen by gen surgery. going to IR for removal of cholecystostomy tube. will keep biliary drain in place for d/c. IR will provide a cap for placement after the weekend and f/u appt within 2 weeks. Also pt will f/ u with dr Anderson for scheduling of lap vega. - (2) Choledocholithiasis ICD Codes: K80.50 - Calculus of bile duct without cholangitis or cholecystitis without obstruction Plan: - See above (3) Transaminitis ICD Codes: R74.0 - Nonspecific elevation of levels of transaminase and lactic acid dehydrogenase [LDH] Plan: - See above (4) Hypercholesteremia ICD Codes: E78.00 - Pure hypercholesterolemia, unspecified Plan: - Hold statin at this time Problem Qualifiers (1) Pancreatitis due to biliary obstruction: Qualified Codes: K85.10 - Biliary acute pancreatitis without necrosis or infection Pranav Henning MD Mar 27, 2017 10:23
[2017-03-27] MEDS ORDERED: NORC5TAB PO (10:26)
--- NOTE | 2017-03-27 10:26 | HHI.DCPOC ---
Discharge Care Plan Diagnosis: (1) Choledocholithiasis (2) Pancreatitis due to biliary obstruction Goals to Promote Your Health * To prevent worsening of your condition and complications * To maintain your health at the optimal level Directions to Meet Your Goals Take your medications as prescribed Follow your dietary instruction Follow activity as directed Keep your appointments as scheduled Take your immunizations and boosters as scheduled If your symptoms worsen call your PCP, if no PCP go to Urgent Care Center or Emergency Room Smoking is Dangerous to Your Health. Avoid second hand smoke Call the 24-hour hour crisis hotline for domestic abuse at Pranav Henning MD Mar 27, 2017 10:26
--- NOTE | 2017-03-27 10:28 | HHI.FF ---
Face to Face Verification Diagnosis: (1) Choledocholithiasis (2) Pancreatitis due to biliary obstruction Home Health Nursing Order: Medical education Signs/symptoms of disease process Wound care and dressing changes Nursing assessment with vital signs Instructions: ASSIST PT IN MANAGING HIS BILIARY DRAIN CARE I have seen patient Tom Perez on 03/27/17. My clinical findings support the need for the requested home health care services because: Limited ability to care for self I certify that my clinical findings support that this patient is homebound because: Need for psychosocial assistance Pranav Henning MD Mar 27, 2017 10:28
[2017-03-27 12:00] VITALS: BP 135/82; PULSE 61; RESP 18; TEMP 97.2; O2SAT 97
[2017-03-27] MEDS ORDERED: IOHEXOL 350 MG/ML 50 ML BTL (for RAD DIAG) OTHER ONE (13:15)
[2017-03-27] MEDS ORDERED: oxyCODONE/ACETAMINOPHEN 5 MG/325 MG TAB PO PRN (14:00)
--- NOTE | 2017-03-27 14:19 | HHI.DS ---
Discharge Summary Admission Date Mar 22, 2017 at 06:48 Discharge Date: Mar 27, 2017 Admitting Diagnosis biliary pancreatitis (1) Pancreatitis due to biliary obstruction Diagnosis: Principal ICD Codes: K85.90 - Acute pancreatitis without necrosis or infection, unspecified; K83.1 - Obstruction of bile duct Status: Acute (2) Choledocholithiasis Diagnosis: Secondary ICD Codes: K80.50 - Calculus of bile duct without cholangitis or cholecystitis without obstruction (3) Transaminitis Diagnosis: Secondary ICD Codes: R74.0 - Nonspecific elevation of levels of transaminase and lactic acid dehydrogenase [LDH] (4) Hypercholesteremia Diagnosis: Secondary ICD Codes: E78.00 - Pure hypercholesterolemia, unspecified Consultants Dr. Doug Quinteros - General Surgery Dr. Farhan Meek - GI Dr. Luis Olvera - Interventional Radiology Brief History This is a 51 year old male patient with a past medical history which includes high cholesterol, R carotid stenosis, DM, GERD and HTN. Patient has gastic bypass 2014 and in no longer on medication for DM, GERD or HTN. Patient reports he has had three episodes of RUQ abdominal pain described as feeling as though his abdominal muscles are tightened and wount relax. The initial episode was about two months ago then second episode was about one month ago both of these episodes resolved spontaneously. Last night night pain had a third episode of RUQ abdominal pain that did not resolve therefore he proceeded to the ER. Pain resolved after IV dilaudid. Patient reports associated dry heaves and nausea. Patient is unsure what causes these episodes, they do not seem to be related to food. Patient denies fevers, SOB or chest pain. CT abd/pelvis reviewed and reveals: 8mm biliary duct obstructing stone. CBC/BMP: 03/25/17 0727 03/26/17 0715 Significant Findings Laboratory Tests Test 03/25/17 07:27 03/26/17 07:15 Red Blood Count 4.46 MIL/MM3 (4.50-5.90) Monocytes (%) (Auto) 8.5 % (0.0-8.0) Albumin 3.2 GM/DL (3.4-5.0) 3.1 GM/DL (3.4-5.0) Alkaline Phosphatase 160 U/L (45-117) 143 U/L (45-117) Alanine Aminotransferase (ALT/SGPT) 117 U/L (12-78) 90 U/L (12-78) Anion Gap 3 MEQ/L (5-15) Imaging Last Impressions Bile Duct Drainage 03/25/17 0918 Signed Impressions: Service Date/Time: Saturday, March 25, 2017 10:36 - CONCLUSION: 1. Tube cholangiogram. 2. Large, 9-10 mm isolated stone in the distal CBD. 3. PTHD with biliary stent placement. 4. TWILL CUTTER of the sphincter with Shay stone extraction Luis Olvera MD Percutaneous Cholangiogram 03/23/17 0000 Signed Impressions: Service Date/Time: Thursday, March 23, 2017 12:41 - CONCLUSION: 1. Uncomplicated percutaneous cholecystostomy as above. 2. Plan to let the patient drain for the next 48 hours. We'll bring the patient back down and perform a complete cholangiogram through the gallbladder access. We ccan use the cholangiogram to performed a PTHD at that time. Luis Olvera MD Chest X-Ray 03/22/17 0631 Signed Impressions: Service Date/Time: Wednesday, March 22, 2017 06:35 - CONCLUSION: Hypoinflation with no acute cardiac pulmonary process. Luis Olvera MD Abdomen/Pelvis CT 03/22/17 0000 Signed Impressions: Service Date/Time: Wednesday, March 22, 2017 05:42 - CONCLUSION: 1. I believe patient's symptoms are due to a biliary ductal stone measuring 8 mm in diameter with resulting intrahepatic and extrahepatic biliary ductal dilatation, gallbladder distention and mild pericholecystic fluid. 2. Otherwise negative. The vermiform appendix is identified and is radiographically normal. The appendiceal tip is juxtaposed between the right hepatic lobe and ascending colon. Luis Olvera MD Hospital Course Pt is a 51 y/o male with previous Nesha-en-Y gastric bypass in 2014 who was admitted with complaints of abdominal pain and was found to have gallstone pancreatitis. CT scan reviewed and reveals biliary ductal stone measuring 8 mm in diameter with resulting intrahepatic and extrahepatic biliary ductal dilation , gallbladder distention and mild pericholecystic fluid. Lipase 2790 (03/22) --> 267 (03/24). GI was consulted but due to patient's previous Nesha-en-Y surgery he was recommended interventional radiology evaluation. Case and a CT scan discussed with General surgery, Dr. Quinteros (03/22). Dr. Quinteros recommended general surgery consult after interventional radiology procedure complete. Pt underwent attempted percutaneous cholangiogram (03/23) but they were unable to access intrahepatic biliary tree. Per report, GB was stuck transhepatic with micropuncture needle and 3-Fr dilator placed into GB. Unable to opacify intrahepatic ducts with GB access. IR placed cholecystostomy tube. Pt was recommended to allow for biliary decompression/drainage for 48 hours. Pt returned to IR on 03/25 and the stone was able to be pushed through into the duodenum and a biliary drain was placed along with the cholecystostomy tube. Pts transaminases continued to improve. General Surgery evaluated the pt and was recommended for outpt followup with Dr. Paniagua for scheduling the cholecystectomy. IR re-evaluated for possible removal of the cholecystostomy tube on 03/27 but it was not felt that this was stable for removal at this point. Radiologist capped biliary drain and left cholecystostomy tube to continue gravity drainage. We will arrange for [facility] for monitoring as an outpt. Followup with Dr. Paniagua in 1 week for scheduling for cholecystectomy Followup with IR in 2 weeks and if cholecystectomy has not been performed at that point then biliary drain and cholecystostomy tube will be removed. Pt Condition on Discharge: Stable Discharge Disposition: Disch w/ Home Health Serv Discharge Instructions DIET: Follow Instructions for: Heart Healthy Diet Activities you can perform: Regular-No Restrictions Follow up Referrals: Surgical - 1 Week with Fam Anderson MD New Medications: Hydrocodone-Acetaminophen (Maxatawny) 5-325 mg Tab 1-2 TAB PO Q6H PRN for PAIN, #30 TAB 0 Refills Continued Medications: Atorvastatin (Lipitor) 80 Mg Tab 80 MG PO DAILY for Cholesterol Management, #30 TAB 0 Refills Discontinued Medications: Aspirin (Aspirin) 81 Mg Chew 81 MG CHEW DAILY, TAB 0 Refills Cynthia Brandon Mar 27, 2017 14:19
--- NOTE | 2017-03-27 17:13 | RADRPT ---
EXAM DATE/TIME: 03/27/2017 12:28 [facility] COMPARISON: CHOLANGIOGRAM THRU EXISTING CATHETER, March 27, 2017, 0:00. INDICATIONS : Patient with a history of biliary obstruction, needs biliary drains evaluated. MEDICAL HISTORY : HLD HTN Right carotid stenosis Diabetes GERD SURGICAL HISTORY : Gastric bypass 2016 Left shoulder surgery Vasectomy ENCOUNTER: Subsequent ACUITY: 1 week PAIN SCORE: 6/10 LOCATION: Right flank FLUORO TIME: 2.4 minutes IMAGE SERIES: 2 CONTRAST: 10 cc Omnipaque (iohexol) 350 PROCEDURE : 1. tube cholangiogram The risks, benefits and alternatives to the procedure were explained and verbal and written consent w as obtained. The site was prepped in sterile fashion. Full sterile technique was used, including ca p, mask, sterile gloves and gown and a large sterile sheet. Hand hygiene and 2% chlorhexidine and/or betadine/alcohol prep was utilized per protocol for cutaneous antisepsis. The skin and subcutaneous tissues were infiltrated with local anesthetic solution. PTHD is injected. Tube is in excellent position with opacification of the CBD and pancreatic duct. Co ntrast is seen in the second portion of the duodenum. No residual stone disease. Cystic duct is paten t. CONCLUSION: No residual stone disease. Luis Olvera MD on March 27, 2017 at 17:10 Board Certified Radiologist. This report was verified electronically.
--- NOTE | 2017-03-27 17:17 | RADRPT ---
EXAM DATE/TIME: 03/27/2017 12:28 [facility] COMPARISON: No previous studies available for comparison. INDICATIONS : Patient with a history of biliary obstruction, needs biliary drains evaluated. MEDICAL HISTORY : HLD HTN Right carotid stenosis Diabetes GERD SURGICAL HISTORY : Gastric bypass 2016 Left shoulder surgery Vasectomy ENCOUNTER: Subsequent ACUITY: 1 week PAIN SCORE: 6/10 LOCATION: Right flank FLUORO TIME: 2.4 minutes IMAGE SERIES: 3 CONTRAST: 30 cc Omnipaque (iohexol) 350 PROCEDURE : 1. Fluoroscopically guided tube exchange. 2. tube cholangiogram. The risks, benefits and alternatives to the procedure were explained and verbal and written consent w as obtained. The site was prepped in sterile fashion. Full sterile technique was used, including ca p, mask, sterile gloves and gown and a large sterile sheet. Hand hygiene and 2% chlorhexidine and/or betadine/alcohol prep was utilized per protocol for cutaneous antisepsis. With fluoroscopic guidance the previously placed tube was exchanged over an 018 wire. A 3-4 dilator w as placed over the 018 wire. With the use of a Touy-Davion, the outer 4 Estonian dilator was injected ov er the wire. There is normal opacification of the gallbladder lumen however, as the catheter was pull ed back, there was resultant spillage of contrast into the peritoneal cavity. As such, a similar 6 Fr ench catheter was advanced over the wire and into the gallbladder lumen CONCLUSION: 1. Uncomplicated tube exchange as above. 2. Immature tract was spillage of contrast into the peritoneal cavity. 3. Patient is scheduled to return to radiology specials in 2 weeks for reevaluation and possible tube removal. Luis Olvera MD on March 27, 2017 at 17:12 Board Certified Radiologist. This report was verified electronically.
== END 2017-03-27 16:24 | disposition home health service (06) | DRG 439 ==
LOC: NEPC 04:23 → NEDA 06:48 → N06B 09:14
PROVIDERS: ADMIT Hospitalist; ATTEND Hospitalist
PROC: BF121ZZ Fluoroscopy of Gallbladder using Low Osmolar Contrast (ICD-10-PCS; principal; 2017-03-23)
PROC: 0F9430Z Drainage of Gallbladder with Drainage Device, Percutaneous Approach (ICD-10-PCS; 2017-03-23)
PROC: BF121ZZ Fluoroscopy of Gallbladder using Low Osmolar Contrast (ICD-10-PCS; 2017-03-25)
PROC: 0F793DZ Dilation of Common Bile Duct with Intraluminal Device, Percutaneous Approach (ICD-10-PCS; 2017-03-25)
PROC: 0FC93ZZ Extirpation of Matter from Common Bile Duct, Percutaneous Approach (ICD-10-PCS; 2017-03-25)
PROC: BF121ZZ Fluoroscopy of Gallbladder using Low Osmolar Contrast (ICD-10-PCS; 2017-03-27)
PROC: 0F24X0Z Change Drainage Device in Gallbladder, External Approach (ICD-10-PCS; 2017-03-27)
DX: K85.10 Biliary acute pancreatitis without necrosis or infection (principal); K80.31 Calculus of bile duct with cholangitis, unspecified, with obstruction; I65.21 Occlusion and stenosis of right carotid artery; E78.00 Pure hypercholesterolemia, unspecified; K21.9 Gastro-esophageal reflux disease without esophagitis; E11.9 Type 2 diabetes mellitus without complications; I10 Essential (primary) hypertension; Z98.84 Bariatric surgery status; F17.290 Nicotine dependence, other tobacco product, uncomplicated
CPT/HCPCS: 47490; 47531; 47534; 47536; 47542; 47544; 71010; 74177; 74360; 80053; 80076; 81001; 82948; 83690; 85025; 85610; 93005; 96361; 96374; C1725; C1729; C1757; C1769; C1887; J1170; J1956; J2270; J2405; J2543; J2710; J3010; J7030; Q9967

== ENCOUNTER 2017-04-09 07:37 | Day surgery (SDC) | payer OTHER ==
[~2017-04-09] VITALS: Ht 170.2 cm; Wt 68.6 kg
[~2017-04-09 07:37] MED LIST changes: -HYDR-3533 PO; -MULT1TAB84 PO; +NORC5TAB PO
[2017-04-09 07:53] VITALS: BP 120/88; PULSE 77; RESP 20; TEMP 97.8; O2SAT 98
[2017-04-09] MEDS ORDERED: SODIUM CHLORIDE 0.9% 1000 ML IV SCH (08:15)
[2017-04-09] MEDS ORDERED: MIDAZOLAM HCL 5 MG/5 ML VIAL ONE (09:18)
[2017-04-09] MEDS ORDERED: IOHEXOL 350 MG/ML 50 ML BTL (for RAD DIAG) OTHER ONE (09:52)
[2017-04-09 10:15] VITALS: BP 109/65; PULSE 85; RESP 18; TEMP 97.6; O2SAT 95
--- NOTE | 2017-04-09 10:18 | PD.RAD ---
Post Procedure Progress Note Pre Procedure Diagnosis: (1) Biliary obstruction Post Procedure Diagnosis: (1) Biliary obstruction Procedure Date: Apr 09, 2017 Supervising Radiologist: Luis Olvera Proceduralist/Assist: RT Hansel(R), RT Robert(R)() Anesthesia: Local, Analgesia, Conscious Sedation Plan of Activity Patient to Unit: ROPU Patient Condition: Good See PACS Report for procedural detail/treatment Drainage Procedure Procedure 1 Imaging Guidance: Fluoroscopy Procedure Type: Biliary Drainage, Cholecystostomy Procedure: Removal, Evaluation Findings: No residual stones. CBD patent to duodenum. Mature tract from GB lumen to skin surface. Both tubes removed. Luis Olvera MD Apr 09, 2017 10:18
[2017-04-09 10:30] VITALS: BP 104/75; PULSE 84; RESP 18; O2SAT 96
[2017-04-09 11:00] VITALS: BP 106/68; PULSE 80; RESP 16; O2SAT 95
--- NOTE | 2017-04-09 12:27 | RADRPT ---
EXAM DATE/TIME: 04/09/2017 09:30 [facility] COMPARISON: No previous studies available for comparison. INDICATIONS : Patient with history of biliary obstruction in need of evaluation and removal of gallbladder drain. MEDICAL HISTORY : HLD HTN Right carotid stenosis Diabetes GERD SURGICAL HISTORY : Gastric bypass ENCOUNTER: Subsequent ACUITY: 2 months PAIN SCORE: 0/10 FLUORO TIME: 2.8 minutes IMAGE SERIES: 7 SEDATION TIME: 30 minutes CONTRAST: 40 cc Omnipaque (iohexol) 350 MEDICATION(S): 1.) 4.5 mg midazolam (Versed) IV 2.) 250 mcg fentanyl (Sublimaze) IV PROCEDURE : Patient has both a internal/external biliary tube and cholecystostomy tube after CBD stone extraction . The biliary tube was removed over a wire and a 6 Setswana side-port sheath advanced over the 018 wire. Contrast injection showed normal filling of the extrahepatic biliary ducts with some slight dilatatio n of the distal CBD the contrast flowed freely through the sphincter into the second portion the duod enum without residual stones. Similarly, the cholecystostomy tube was removed over the 018 wire and replaced with a 3 Setswana dilato r. The gallbladder was distended with contrast and saline through the 3 Setswana dilator and contrast p assed freely through the cystic duct into the CBD. Catheter was then withdrawn demonstrating a mature tract from the gallbladder lumen, through the liver onto the skin surface without intraperitoneal le akage of contrast. Both catheters were removed and dressed with gauze. Patient tolerated procedure well without complica tions. Conscious sedation was performed with the prescribed dosages and duration as above in the presence of an independent trained radiology nurse to assist in the monitoring of the patient. EKG and oximetry remained stable throughout the procedure CONCLUSION: Ducts are patent. Mature tracts to the skin surface. Biliary drain and cholecystostomy tubes wer e removed. Luis Olvera MD on April 09, 2017 at 12:15 Board Certified Radiologist. This report was verified electronically.
--- NOTE | 2017-04-09 12:39 | RADRPT ---
EXAM DATE/TIME: 04/09/2017 09:30 [facility] COMPARISON: No previous studies available for comparison. INDICATIONS : Patient with history of biliary obstruction in need of evaluation and removal of biliary drain. MEDICAL HISTORY : HLD HTN Right carotid stenosis Diabetes GERD SURGICAL HISTORY : Gastric bypass ENCOUNTER: Subsequent ACUITY: 2 months PAIN SCORE: 0/10 FLUORO TIME: 2.8 minutes IMAGE SERIES: 7 SEDATION TIME: 30 minutes CONTRAST: 40 cc Omnipaque (iohexol) 350 MEDICATION(S): 1.) 4.5 mg midazolam (Versed) IV 2.) 250 mcg fentanyl (Sublimaze) IV PROCEDURE : Patient has an internal/external biliary drain in cholecystostomy tube. The biliary drain was removed over an 018 wire. 6 Persian side-port sheath was advanced over the wire. Contrast injection showed fi lling of the intra-and extrahepatic biliary ducts with slight dilatation of the distal CBD but no elen ling defects to suggest residual stones. Contrast flowed freely through the sphincter into the second portion of the duodenum. Tube was removed. Conscious sedation was performed with the prescribed dosages and duration as above in the presence of an independent trained radiology nurse to assist in the monitoring of the patient. EKG and oximetry remained stable throughout the procedure CONCLUSION: 1. CBD is patent without residual stones. Contrast flows freely into the second portion of the duoden um. 2. Biliary drain was removed. 3. Study was done in conjunction with evaluation and removal of the cholecystostomy tube. Luis Olvera MD on April 09, 2017 at 12:35 Board Certified Radiologist. This report was verified electronically.
== END 2017-04-09 12:30 | disposition home or self-care (01) ==
LOC: HROP 07:37 → HRIP 07:38 → HROP 12:30
PROVIDERS: ATTEND Radiology Body Imaging
DX: K83.1 Obstruction of bile duct (principal); I10 Essential (primary) hypertension; E78.5 Hyperlipidemia, unspecified; I65.21 Occlusion and stenosis of right carotid artery; E11.9 Type 2 diabetes mellitus without complications; K21.9 Gastro-esophageal reflux disease without esophagitis
CPT/HCPCS: 47531; 47537; 99152; 99153; C1769; C1887; C1894; J2250; J3010; J7030; Q9967

== ENCOUNTER → 2017-05-06 | Day surgery (SDC) | payer OTHER ==
[~2017-05-06] VITALS: Ht 170.2 cm; Wt 77.0 kg
[~2017-05-06] MED LIST changes: +*morphine SULFATE 8 MG/ML PERIprocedure ONLY ONE; +ACETAMINOPHEN 1000 MG/100 ML 100 ML IV SCH; +BUPIVACAINE/EPINEPHRINE 0.25% PF 10 ML VIAL INFIL ONE; +CHLORHEXIDINE GLUCONATE 2 % 1 PACK (2 CLOTHS) TOPICAL PRN; +DO NOT ADM ANY ANTICOAGULANT DRUGS PRN; +INSULIN HUMAN REGULAR 1,000 UNITS/10 ML VIAL SQ PRN; +LACTATED RINGER'S 1000 ML IV PRN; +METOPROLOL TARTRATE 25 MG TAB PO PRN; +MORPHINE SULFATE 4 MG/ML INJ IV PUSH PRN; -NORC5TAB PO; +ONDANSETRON HCL 4 MG/2 ML VIAL IV PUSH PRN; +POVIDONE IODINE 5% (ANTISEPSIS KIT) 4 APPLICATIONS EACH NARE PRN; +SODIUM CHLORID 0.9% 500 ML IV PRN; +SODIUM CHLORIDE 0.9% FLUSH 10 ML FLUSH IV FLUSH PRN; +SODIUM CHLORIDE 0.9% FLUSH 10 ML FLUSH IV FLUSH SCH; +TRAZ50TA12 PO; +[UNRECOGNIZED DRUG - CODE] PO; +ceFAZolin 2 GM PREMIX 50 ML IV SCH; +metroNIDAZOLE 500 MG INJ 100 ML IV SCH; +oxyCODONE/ACETAMINOPHEN 5 MG/325 MG TAB ONE; +oxyCODONE/ACETAMINOPHEN 5 MG/325 MG TAB PO PRN
[2017-05-06 16:15] VITALS: BP 143/78; PULSE 80; RESP 16; TEMP 98; O2SAT 97
--- NOTE | 2017-05-13 23:51 | MP ---
cc: FAM ANDERSON DATE OF OPERATION 05/06/2017 DATE OF 1965 PREOPERATIVE DIAGNOSIS Recent choledocholithiasis with cholelithiasis. POSTOPERATIVE DIAGNOSIS Recent choledocholithiasis with cholelithiasis. PROCEDURE Laparoscopic cholecystectomy. SURGEON Fam Anderson MD. ANESTHESIA General endotracheal anesthesia. ESTIMATED BLOOD LOSS Scant. FINDINGS Distended gallbladder. The patient had a prior gastric bypass. The epigastrium was inspected. The ___ appeared to be without dilation. No evidence of Hannah defect. No evidence of defect at the enterostomy. No signs of bowel obstruction. SPECIMEN Gallbladder. COMPLICATIONS None. OPERATIVE PROCEDURE The patient was taken to the operating room and placed on the operating table in supine position. Bilateral sequential inflation devices were placed on the lower extremities. General anesthesia was instituted. The abdomen was then prepped and draped in a standard surgical fashion. The infraumbilical region was anesthetized with 0.5% Marcaine with epinephrine. A vertical incision was made and extended into the umbilicus. A 12 mm Optiview port was placed. A pneumoperitoneum was created. Under direct vision a 10 mm subxiphoid and two 5 mm right upper quadrant ports were placed. Prior to placement of all ports the skin and peritoneum was anesthetized with 0.5% Marcaine with epinephrine. The gallbladder was identified, grasped and retracted into the right upper quadrant. The infundibulum was grasped. The peritoneum overlying Calot's triangle was incised with a Bovie. The cystic duct was identified, circumferentially dissected, doubly ligated proximally and distally and then divided. The cystic artery was identified, circumferentially dissected, doubly ligated proximally and distally and divided. The gallbladder was removed from the gallbladder fossa using Bovie electrocautery. Hemostasis was achieved along the way using the Bovie. The gallbladder was removed from the peritoneal cavity through the subxiphoid port. The liver bed was inspected. Hemostasis was present. Hemoclips were intact. There was no evidence of hemorrhage or bile leak. The pneumoperitoneum was released. All ports were removed. The fascia of the infraumbilical ports were reapproximated with 0 Vicryl. All skin incisions were closed with 4-0 PDS. The abdomen was cleaned and sterile dressing placed. The patient was awakened and taken to the recovery room stable. MD YANIRA Harris /6:43 PM /11:41 PM
== END | disposition home or self-care (01) ==
LOC: HSDC 08:46
PROVIDERS: ATTEND Surgery
DX: K80.66 Calculus of gallbladder and bile duct with acute and chronic cholecystitis without obstruction (principal); E11.9 Type 2 diabetes mellitus without complications; E53.8 Deficiency of other specified B group vitamins; E55.9 Vitamin D deficiency, unspecified; M48.00 Spinal stenosis, site unspecified; M54.2 Cervicalgia; E78.1 Pure hyperglyceridemia; Z98.84 Bariatric surgery status
CPT/HCPCS: 00790; 47562; 88304; J0690; J2270; J7120